=== PATIENT | female | born 1950 | race Caucasian/White ===

== ENCOUNTER → 2016-09-23 | Outpatient (CLI) | payer OTHER ==
[~2016-09-23] MED LIST: ASCO500T16 PO; ASPEC81 PO; ASPI81TA28 PO; ATEN25TA PO; BENZ100C6 PO; BISM262T3 PO; CALC500C3 PO; CLCC1250 PO; CRAN1CAP15 PO; CRAN500C2 PO; CZR25 PO; DOCU-94 PO; FLNIN; FLUT0.15 NAE; HYDR12.56 PO; HYDR25TA4 PO; LEVO100T PO; LISI-461 PO; LORA-741 PO; LORA10CA2 PO; MELO15TA10 PO; NTRGSL/4 UT; OMEG10007 PO; OYST500T47 PO; POTA10CA28 PO; ROSU5TAB PO; SYN50 PO; TRAM-10 PO; TURM1CAP2 PO; TYLOTC500 PO; [UNRECOGNIZED DRUG - OTHER] PO
--- NOTE | 2016-09-23 13:56 | MAMMOGRAPHY REPORT ---
BILATERAL DIGITAL SCREENING MAMMOGRAM WITH CAD: 09/23/2016 CLINICAL HISTORY: Routine screening. Patient has no complaints. TECHNIQUE: Current study was also evaluated with a Computer Aided Detection (CAD) system. Bilatera l CC and MLO views were obtained. COMPARISON: Comparison is made to exams dated: 09/23/2015 mammogram, 09/19/2014 mammogram, 09/13/2013 m ammogram, 09/12/2012 mammogram, 09/10/2011 mammogram, and 09/08/2010 mammogram - [facility]. BREAST COMPOSITION: The tissue of both breasts is almost entirely fatty. FINDINGS: No suspicious masses, calcifications, or areas of architectural distortion are noted in e ither breast. There has been no significant interval change compared to prior exams. Bilateral shanice gn-appearing calcifications are again noted. IMPRESSION: ACR BI-RADS CATEGORY 2: BENIGN There is no mammographic evidence of malignancy. A 1 year screening mammogram is recommended. The p atient will receive written notification of the results. Approximately 10% of breast cancers are not detected with mammography. A negative mammographic repor t should not delay biopsy if a clinically suggestive mass is present. Fabiola Levy M.D. ah/:09/23/2016 12:23:02 Residential Living Assistant: Kaley FELIZ(R)(M), [facility] letter sent: Normal 1/2 BI-RADS Code: ACR BI-RADS Category 2: Benign
== END | disposition home or self-care (01) ==
LOC: C.MAMM 09:40
PROVIDERS: ATTEND Family Medicine
DX: Z12.31 Encounter for screening mammogram for malignant neoplasm of breast (principal)

== ENCOUNTER 2017-04-04 22:20 | Emergency (ER) | payer OTHER ==
[~2017-04-04] VITALS: Ht 157.5 cm; Wt 95.0 kg
[~2017-04-04 22:20] MED LIST changes: -ASPI81TA28 PO; -CRAN500C2 PO; -FLUT0.15 NAE; -HYDR25TA4 PO; -LEVO100T PO; -LORA-741 PO; -MELO15TA10 PO; -OYST500T47 PO; -POTA10CA28 PO; -TURM1CAP2 PO
[2017-04-04] MEDS ORDERED: ALBUT/IPRATROP 3MG/0.5MG NEB 3 ML VIAL INH STA (22:27)
[2017-04-04 22:30] VITALS: TEMP 36.9; Ht 157.5 cm; Wt 95.0 kg
[2017-04-04 22:54] VITALS: O2SAT 95
[2017-04-04 22:56] LABS: BASO % 0.6 %; BASO ABS # 0.04 K/uL (0-0.2); COMPLETE YES; EOS % 3.7 %; IG% 0.2 %; LYMPH % 37.8 %; LYMPH ABS # 2.35 K/uL (1.2-3.4); MEAN CELL VOLUME 88.6 fL (80-100); MEAN CORPUSCULAR HEMOGLOBIN 30.8 pg (25-34); MEAN CORPUSCULAR HGB CONC 34.7 g/dl (32-36); MEAN PLATELET VOLUME 9.1 fL (7.4-10.4); NEUT % 48.7 %; PLATELET COUNT 183 K/uL (130-400); RED BLOOD COUNT 4.29 M/uL (4.2-5.4); WHITE BLOOD COUNT 6.22 K/uL (4.8-10.8)
[2017-04-04] MEDS ORDERED: LORA-741 PO (22:57)
[2017-04-04] MEDS ORDERED: HYDR25TA4 PO (22:57)
[2017-04-04] MEDS ORDERED: LEVO100T PO (22:57)
[2017-04-04] MEDS ORDERED: FLUT0.15 NAE (22:57)
[2017-04-04] MEDS ORDERED: CRAN500C2 PO (22:57)
[2017-04-04] MEDS ORDERED: ASPI81TA28 PO (22:57)
[2017-04-04] MEDS ORDERED: TURM1CAP2 PO (22:57)
[2017-04-04] MEDS ORDERED: OYST500T47 PO (22:57)
[2017-04-04] MEDS ORDERED: MELO15TA10 PO (22:57)
[2017-04-04 23:15] LABS: ALT/SGPT 28 U/L (12-78); AST/SGOT 28 U/L (15-37); BLOOD UREA NITROGEN 18 mg/dl (7-18); BUN/CREATININE RATIO 18.5 (10-20); CALCIUM 9.1 mg/dl (8.5-10.1); CARBON DIOXIDE 31 mmol/L (21-32); CHLORIDE 104 mmol/L (98-107); CREATININE 0.98 mg/dl (0.60-1.20); GLUCOSE 131 mg/dl (70-99); POTASSIUM 3.4 mmol/L (3.5-5.1); SODIUM 141 mmol/L (136-145)
[2017-04-04 23:25] LABS: ALKALINE PHOSPHATASE 70 U/L (45-117)
[2017-04-05] MEDS ORDERED: POTASSIUM CHLORIDE 10 MEQ TABCR PO STA (00:19)
--- NOTE | 2017-04-05 00:24 | EMERGENCY ROOM VISIT NOTE ---
ED Visit Note First contact with patient: 22:21 Patient was seen by our PA/VOCATIONAL REHABILITATION SPECIALIST. I was involved in the patient's care and did evaluate the patient myself. I was involved in the care throughout the ER stay. The patient presents with leg swelling. Laboratory testing is unrevealing. EKG is unchanged. Chest x-ray is clear. An ultrasound of the legs and some troponin testing has been ordered. If her workup is benign, she can be discharged home with reassurance. Outpatient follow-up will be suggested.
[2017-04-05 00:29] LABS: INFLUENZA A PCR Neg for Influ A (NEG); INFLUENZA B PCR Neg for Influ B (NEG)
[2017-04-05] MEDS ORDERED: ALBUTEROL HFA 8 GM INHALER INH STA (00:54)
--- NOTE | 2017-04-05 01:20 | EMERGENCY ROOM VISIT NOTE ---
History First contact with patient: 22:21 Chief Complaint: LEG PAIN,LEG INJURY Stated Complaint: RT. LEG PAIN History of Present Illness The patient is a 66 year old female who presents to the Emergency Room with complaints of cough, congestion, fatigue with right leg pain and swelling. Patient states she's had a cold for the past few days. Patient states she's had bronchitis before and symptoms of similar. Patient states today she has leg pain or swelling. 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 Patient denies chest pain, dyspnea, recent travel, tobacco use, cancer, history of blood clots, abdominal pain, vomiting, diarrhea, fevers, sore throat. Patient does have varicose veins to her legs. She has had swelling in her legs before. No history of blood clots. She's had heart disease in the past. She follows with Dr. Lynn. Review of Systems See HPI for pertinent positives & negatives. A total of 10 systems reviewed and were otherwise negative. Past Medical/Surgical History Medical Problems: (1) Chronic back pain (2) Heart aneurysm Surgical Problems: (1) H/O tubal ligation Hyperlipidemia, hypogonadism, hypertension, fatty liver Family History Cancer Diabetes mellitus Gallbladder disease Heart disease Hypertension Social History Smoking Status: Never Smoker Alcohol Use: none Marital Status: Housing Status: lives with significant other Occupation Status: unemployed Current/Historical Medications Scheduled Ascorbic Acid (Ascorbic Acid), 500 MG PO BID Aspirin (Aspirin Ec), 81 MG PO DAILY Atenolol (Tenormin), 12.5 MG PO DAILY Cranberry (Vaccinium Macrocarp (Cranberry), 1 CAN PO DAILY Docusate Sodium (Colace), 1 CAP PO QPM Fluticasone Propionate (Nasal) (Flonase Allergy Relief), 2 SPRAYS ALEXANDR DAILY Hydrochlorothiazide (Hctz), 25 MG PO DAILY Levothyroxine Sodium (Synthroid), 100 MCG PO DAILY Loratadine (Claritin), 10 MG PO DAILY Losartan Potassium (Losartan Potassium), 25 MG PO DAILY Meloxicam (Mobic), 15 MG PO DAILY Nitroglycerin (Nitrostat), 0.4 MG UT PRN Oyster Shell (Calcium), 500 MG PO DAILY Rosuvastatin Calcium (Crestor), 5 MG PO HS Turmeric (Curcuma Longa) (Turmeric), 1 CAP PO DAILY Scheduled PRN Acetaminophen (Tylenol), 1,000 MG PO for Headache or Pain Lisinopril (Lisinopril), 10 MG PO DAILY PRN for prn Lorazepam (Ativan), 0.25-0.5 MG PO TID PRN for Anxiety Tramadol (Ultram), 50 MG PO for Pain Physical Exam Vital Signs Date Time Temp Pulse Resp B/P (MAP) Pulse Ox O2 Delivery O2 Flow Rate FiO2 04/05/17 00:11 89 20 155/75 97 Room Air 04/04/17 23:10 90 04/04/17 23:00 85 20 136/64 95 Room Air 04/04/17 22:54 95 Nebulizer 8.0 04/04/17 22:45 94 Room Air 04/04/17 22:30 36.9 88 20 162/72 93 Room Air Physical Exam VITALS: Vitals are noted on the nurse's note and reviewed by myself. Vital signs stable. GENERAL: Pleasant female, in no acute distress, nondiaphoretic, well-developed well-nourished. SKIN: The skin was without rashes, erythema, edema, or bruising. There is no tenting of the skin. Capillary reflex less than 2 seconds. HEAD: Normocephalic atraumatic. EARS: External auditory canals clear, tympanic membranes pearly soliman without erythema or effusion bilaterally. EYES: Pupils equal round and reactive to light and accommodation. Conjunctivae without injection, sclerae without icterus. Extraocular movements intact. NOSE: Patent, turbinates without inflammation or discharge. No sinus tenderness. MOUTH: Mucous membranes moist. Pharynx without erythema or exudate. Uvula midline. Airway patent. Tongue does not deviate. NECK: Supple without nuchal rigidity. No lymphadenopathy. No thyromegaly. Cervical spine is nontender. No JVD. HEART: Regular rate and rhythm LUNGS: Mild diffuse end expiratory wheezes, without rales or rhonchi. No dullness to percussion. No retractions or accessory muscle use. ABDOMEN: Positive bowel sounds x 4. Normal tympanic percussion. Soft, nontender, without masses or organomegaly. Sewell sign negative. No guarding or rebound tenderness. MUSCULOSKELETAL: No muscle atrophy, erythema, noted. Minimal trace pedal edema bilaterally. Varicose veins lower legs bilaterally NEURO: Patient was alert and oriented to person place and time. Normal sensation to light and sharp touch. No focal neurological deficits. Medical Decision & Procedures Laboratory Results 04/04/17 22:45 Red Blood Count 4.29, Mean Corpuscular Volume 88.6, Mean Corpuscular Hemoglobin 30.8, Mean Corpuscular Hemoglobin Concent 34.7, Mean Platelet Volume 9.1, Neutrophils (%) (Auto) 48.7, Lymphocytes (%) (Auto) 37.8, Monocytes (%) (Auto) 9.0, Eosinophils (%) (Auto) 3.7, Basophils (%) (Auto) 0.6, Neutrophils # (Auto) 3.03, Lymphocytes # (Auto) 2.35, Monocytes # (Auto) 0.56, Eosinophils # (Auto) 0.23, Basophils # (Auto) 0.04 04/04/17 22:45 Test 04/04/17 22:45 04/04/17 23:00 White Blood Count 6.22 K/uL (4.8-10.8) Red Blood Count 4.29 M/uL (4.2-5.4) Hemoglobin 13.2 g/dL (12.0-16.0) Hematocrit 38.0 % (37-47) Mean Corpuscular Volume 88.6 fL (80-100) Mean Corpuscular Hemoglobin 30.8 pg (25-34) Mean Corpuscular Hemoglobin Concent 34.7 g/dl (32-36) Platelet Count 183 K/uL (130-400) Mean Platelet Volume 9.1 fL (7.4-10.4) Neutrophils (%) (Auto) 48.7 % Lymphocytes (%) (Auto) 37.8 % Monocytes (%) (Auto) 9.0 % Eosinophils (%) (Auto) 3.7 % Basophils (%) (Auto) 0.6 % Neutrophils # (Auto) 3.03 K/uL (1.4-6.5) Lymphocytes # (Auto) 2.35 K/uL (1.2-3.4) Monocytes # (Auto) 0.56 K/uL (0.11-0.59) Eosinophils # (Auto) 0.23 K/uL (0-0.5) Basophils # (Auto) 0.04 K/uL (0-0.2) RDW Standard Deviation 44.9 fL (36.4-46.3) RDW Coefficient of Variation 14.0 % (11.5-14.5) Immature Granulocyte % (Auto) 0.2 % Immature Granulocyte # (Auto) 0.01 K/uL (0.00-0.02) Anion Gap 6.0 mmol/L (3-11) Est Creatinine Clear Calc Drug Dose 60.7 ml/min Estimated GFR () 69.7 Estimated GFR (Non- 60.1 BUN/Creatinine Ratio 18.5 (10-20) Calcium Level 9.1 mg/dl (8.5-10.1) Magnesium Level 2.0 mg/dl (1.8-2.4) Total Bilirubin 0.3 mg/dl (0.2-1) Direct Bilirubin < 0.1 mg/dl (0-0.2) Aspartate Amino Transf (AST/SGOT) 28 U/L (15-37) Alanine Aminotransferase (ALT/SGPT) 28 U/L (12-78) Alkaline Phosphatase 70 U/L (45-117) Troponin I < 0.015 ng/ml (0-0.045) Total Protein 7.0 gm/dl (6.4-8.2) Albumin 3.8 gm/dl (3.4-5.0) Thyroid Stimulating Hormone (TSH) 2.860 uIu/ml (0.300-4.500) Influenza Type A (RT-PCR) Neg for Influ A (NEG) Influenza Type A Antigen Neg for Influ A (NEG) Influenza Type B Antigen Neg for Influ B (NEG) Influenza Type B (RT-PCR) Neg for Influ B (NEG) Medications Administered Medications (Trade) Dose Ordered Sig/Yenni Route Start Time Stop Time Status Last Admin Dose Admin Albuterol/ Ipratropium (Duoneb) 3 ml NOW STAT INH 04/04/17 22:27 04/04/17 22:30 DC 04/04/17 22:54 3 ML Potassium Chloride (Klor-Con M10) 10 meq NOW STAT PO 04/05/17 00:19 04/05/17 00:20 DC 04/05/17 00:29 10 MEQ Albuterol (Ventolin Hfa Inhaler) 2 puffs ONE STAT INH 04/05/17 00:54 04/05/17 00:55 DC 04/05/17 01:11 2 PUFFS ED Course Prior records/ancillary studies reviewed and summarized above. Nursing notes reviewed. Additional history obtained from EMS and family The patient's history was concerning for cough, fatigue and leg swelling. Differential diagnosis: Etiologies such as varicose veins, DVT, bronchitis, metabolic, infection, hypo/ hyperglycemia, electrolyte abnormalities, cardiac sources, intracerebral event, toxicologic, neurologic, as well as others were entertained. Physical examination: As above. ER treatment provided: IV Lock Nebulizer, albuterol, ONEL hose On reassessment the patient felt better. Diagnostics interpretation by me: ECG: Normal sinus, normal intervals, Q waves in the inferior leads, occasional PVC, no acute ST-T wave changes, rate of 84. EKG compared to prior EKG with no acute changes noted. Impression normal sinus rhythm with occasional PVC with Q waves inferiorly interpreted by myself The labs revealed hyperglycemia without DKA. 2 troponins that are negative for greater than 2 hours apart. Imaging studies: Chest x-ray with no acute consolidation, pneumothorax, stable cardiac mainly per chart review interpreted by myself Ultrasound negative for DVT per radiology Exam and history seem consistent with bronchitis and varicose veins. Patient had unremarkable workup as above besides mild hyperglycemia. She was advised to wear ONEL hose and use the inhaler for her bronchitis. Patient had unchanged EKG. 2 troponin that were negative that were greater than 2 hours apart. Negative ultrasound. No acute findings on chest x-ray. She is advised to follow-up family care in a few days or here in the ER sooner for chest pain, difficulty breathing, worsening signs or symptoms or as needed. By the evaluation outlined above emergent etiologies such as electrolyte abnormalities, cardiac sources, intracerebral event, toxologic, neurologic, metabolic, as well as others were deemed relatively unlikely. The pt informed about the findings as listed above. All questions were answered and pleased with the treatment. Return instructions were outlined and the patient was discharged in stable condition. Case reviewed with my attending Referral: The patient was referred back to primary care physician for follow-up in 2 to 3 days for a recheck of the current condition. Medical Decision as above Medication Reconcilliation Current Medication List: was personally reviewed by me Blood Pressure Screening Patient's blood pressure: Normal blood pressure Impression Primary Impression: Acute bronchitis Additional Impressions: Hyperglycemia Hypokalemia Right leg pain Varicose veins of both lower extremities Departure Information Dispostion Home / Self-Care Condition GOOD Referrals Ismael Aceves M.D. (PCP) Patient Instructions My [facility] Additional Instructions Albuterol Inhaler: Take 2 puffs four times daily for five days, then as needed. Wear ONEL hose when up and about. Avoid prolonged standing. Acetaminophen(Tylenol) may be used for fever or pain. Use 1000mg every six hours as needed. Avoid using more than 3000mg in a 24 hour period. (AND/OR) Ibuprofen(Motrin, Advil) may be used for fever or pain. Use 600mg every six hours as needed. Take with food. Avoid using more than 2400mg in a 24 hour period. Do not use 2400mg per day for more than three consecutive days without physician direction. Prolonged inappropriate use can lead to stomach upset or ulcers. Rest and drink plenty of fluids. Avoid smoke/smoking, fumes, dust, or any triggers in the past that may have affected your breathing. Continue current medications. Return to the ER for chest pain, difficulty breathing, fevers, vomiting, worsening of your condition, or as needed. Follow up with your primary physician this week for a recheck of your current condition and for further evaluation and workup for your high blood sugar tonight. Problem Qualifiers Primary Impression: Acute bronchitis Bronchitis organism: unspecified organism Qualified Codes: J20.9 - Acute bronchitis, unspecified
[2017-04-05 01:24] VITALS: BP 135/68; PULSE 80; O2SAT 95
--- NOTE | 2017-04-05 06:37 | DIAGNOSTIC IMAGING REPORT ---
ULTRASOUND VENOUS DOPPLER LWR EXT BILA CLINICAL HISTORY: Leg pain and swelling COMPARISON STUDY: No previous studies for comparison. FINDINGS: Real-time and color flow Doppler imaging were performed. Flow was seen within the femoral, popliteal and calf veins with no intraluminal thrombus demonstrated. The saphenous vein is patent. IMPRESSION: No evidence of lower extremity DVT. Electronically signed by: London Jerez M.D. 04/05/2017 6:36 AM Dictated Date/Time: 04/05/2017 6:35 AM
--- NOTE | 2017-04-05 06:40 | DIAGNOSTIC IMAGING REPORT ---
CHEST ONE VIEW PORTABLE CLINICAL HISTORY: Cough, fatigue COMPARISON STUDY: January 27, 2014 FINDINGS: The cardiac and mediastinal contours are normal. There is no evidence of focal pulmonary consolidation. There is no evidence of failure. No pleural effusions are visualized.[ IMPRESSION: No active disease in the chest. Electronically signed by: London Jerez M.D. 04/05/2017 6:39 AM Dictated Date/Time: 04/05/2017 6:39 AM
== END 2017-04-05 01:24 | disposition home or self-care (01) ==
LOC: EDBD 22:20 → C.EDB 22:21
DX: J20.9 Acute bronchitis, unspecified (principal); R73.9 Hyperglycemia, unspecified; E87.6 Hypokalemia; M79.604 Pain in right leg; I83.93 Asymptomatic varicose veins of bilateral lower extremities; M54.9 Dorsalgia, unspecified; G89.29 Other chronic pain; I25.3 Aneurysm of heart; I10 Essential (primary) hypertension; E78.5 Hyperlipidemia, unspecified; E28.39 Other primary ovarian failure; K76.0 Fatty (change of) liver, not elsewhere classified; Z79.82 Long term (current) use of aspirin; Z83.3 Family history of diabetes mellitus; Z82.49 Family history of ischemic heart disease and other diseases of the circulatory system

== ENCOUNTER 2017-04-25 11:46 | Emergency (ER) | payer OTHER ==
[~2017-04-25] VITALS: Ht 157.5 cm; Wt 92.7 kg
[~2017-04-25 11:46] MED LIST changes: -ASPEC81 PO; +ASPI81TA28 PO; -BENZ100C6 PO; -BISM262T3 PO; -CALC500C3 PO; -CLCC1250 PO; -CRAN1CAP15 PO; +CRAN500C2 PO; -FLNIN; +FLUT0.15 NAE; -HYDR12.56 PO; +HYDR25TA4 PO; +LEVO100T PO; +LORA-741 PO; +MELO15TA10 PO; -OMEG10007 PO; +OYST500T47 PO; -SYN50 PO; +TURM1CAP2 PO; -[UNRECOGNIZED DRUG - OTHER] PO
[2017-04-25 11:55] VITALS: TEMP 37.2; Ht 157.5 cm; Wt 92.7 kg
[2017-04-25] MEDS ORDERED: POTA10CA28 PO (12:56)
[2017-04-25 13:01] LABS: URINE APPEARANCE CLEAR (CLEAR); URINE BILIRUBIN NEG (NEG); URINE COLOR YELLOW; URINE NITRITE NEG (NEG); URINE SPECIFIC GRAVITY 1.011 (1.000-1.030); UROBILINOGEN NEG (NEG)
[2017-04-25 13:06] LABS: MANUAL MICROSCOPIC REQUIRED? NO; REVIEW REQ? NO
--- NOTE | 2017-04-25 13:25 | DIAGNOSTIC IMAGING REPORT ---
CHEST 2 VIEWS ROUTINE CLINICAL HISTORY: Right-sided chest pain COMPARISON STUDY: 04/04/2017 FINDINGS: The cardiac and mediastinal contours are normal. There is no evidence of focal pulmonary consolidation. There is no evidence of failure. No pleural effusions are visualized.[ IMPRESSION: No active disease in the chest. Electronically signed by: London Jerez M.D. 04/25/2017 1:23 PM Dictated Date/Time: 04/25/2017 1:23 PM
[2017-04-25 13:29] LABS: BASO % 0.8 %; BASO ABS # 0.04 K/uL (0-0.2); COMPLETE YES; EOS % 0.9 %; HEMATOCRIT 38.7 % (37-47); IG% 0.2 %; LYMPH % 38.4 %; LYMPH ABS # 2.03 K/uL (1.2-3.4); MEAN CELL VOLUME 88.8 fL (80-100); MEAN CORPUSCULAR HGB CONC 33.9 g/dl (32-36); MEAN PLATELET VOLUME 9.8 fL (7.4-10.4); MONO % 7.4 %; NEUT % 52.3 %; PLATELET COUNT 189 K/uL (130-400); RED BLOOD COUNT 4.36 M/uL (4.2-5.4); WHITE BLOOD COUNT 5.29 K/uL (4.8-10.8)
[2017-04-25 13:54] LABS: ALB/GLOB RATIO 1.1 (0.9-2); ALKALINE PHOSPHATASE 51 U/L (45-117); ALT/SGPT 29 U/L (12-78); AMYLASE 20 U/L (25-115); BLOOD UREA NITROGEN 16 mg/dl (7-18); BUN/CREATININE RATIO 20.1 (10-20); CALCIUM 9.4 mg/dl (8.5-10.1); CARBON DIOXIDE 31 mmol/L (21-32); CHLORIDE 104 mmol/L (98-107); CREATININE 0.81 mg/dl (0.60-1.20); GLUCOSE 88 mg/dl (70-99); SODIUM 142 mmol/L (136-145)
--- NOTE | 2017-04-25 14:41 | DIAGNOSTIC IMAGING REPORT ---
BILIARY ULTRASOUND CLINICAL HISTORY: RUQ abd pain COMPARISON STUDY: No previous studies for comparison. FINDINGS: The pancreas appears sonographically normal. The liver is of slightly increased echogenicity, nonspecific finding often seen in hepatic steatosis. No gallstones are visualized. There is no gallbladder wall thickening. There is no ductal dilatation. The common bile duct measures 5 mm. There is no right-sided hydronephrosis. IMPRESSION: 1. Ultrasonographically normal gallbladder and pancreas 2. No evidence of ductal dilatation 3. Slight increase in hepatic echogenicity, a nonspecific finding most often seen in hepatic steatosis Electronically signed by: London Jerez M.D. 04/25/2017 2:39 PM Dictated Date/Time: 04/25/2017 2:38 PM
--- NOTE | 2017-04-25 15:58 | EMERGENCY ROOM VISIT NOTE ---
ED Visit Note First contact with patient: 12:01 Patient seen and evaluated at bedside with the physician engineering assistant. Agree with his assessment and plan so far. Discussed with patient possible differential diagnosis for her right-sided rib and right quadrant pain. Discussed all her testing/results. Discussed follow-up with her family doctor, symptoms to watch and return for, she verbalized understanding was agreeable with plan.
[2017-04-25 16:15] VITALS: BP 153/82; PULSE 82; O2SAT 98
--- NOTE | 2017-04-27 18:17 | EMERGENCY ROOM VISIT NOTE ---
History First contact with patient: 12:01 Chief Complaint: ABDOMINAL PAIN Stated Complaint: STOMACH PAIN AND PRESSURE Nursing Triage Summary: triage note: pt reports right abd pain since last night. pt reports nausea. History of Present Illness The patient is a 67 year old white female who presents to the Emergency Room with complaints of right-sided upper abdominal pain that radiates through to her right flank. Symptoms started last evening around 1 AM. She states she had a peanut butter and jelly sandwich and apple pie for dinner. She did not have much of an appetite. She notes nausea but no vomiting or diarrhea. She previously had significant bronchitis approximately 2 weeks ago and had a very vigorous cough. This has resolved over the last day or 2. No fevers, chills, sweats, or abdominal pain. She denies any hematuria, urgency, or frequency. No prior history of similar discomfort. She still has her gallbladder and appendix. She denies any history of kidney stones. No shortness of breath. Pain is not any worse with a deep breath. Her accompanies her today. Review of Systems REVIEW OF SYSTEM: HEENT: No dizziness, visual problems, hearing loss, or tinnitus. There is no difficulty swallowing and no oral lesions are present. PULMONARY: No shortness of breath, sputum production or hemoptysis. CARDIOVASCULAR: No chest pain, palpitations, shortness of breath or peripheral edema. GASTROINTESTINAL: No diarrhea, constipation, vomiting, or abdominal pain. GENITOURINARY: No dysuria, frequency, urgency or nocturia. NEUROLOGIC: No weakness, muscle tenderness, epilepsy or history of neurological problems. MUSCULOSKELETAL: No history of joint tenderness/swelling. No history of arthritis or arthralgias. SKIN: No rashes or lesions. PSYCHIATRIC: No history of depression or mental illness. ENDOCRINE: No history of diabetes, thyroid disorders, or abnormal hair growth. Past Medical/Surgical History Medical Problems: (1) Chronic back pain (2) Heart aneurysm Surgical Problems: (1) H/O tubal ligation Hypertension, history of bronchitis, and GERD Family History Cancer Diabetes mellitus Gallbladder disease Heart disease Hypertension Social History Smoking Status: Never Smoker Smokeless Tobacco Use: No Alcohol Use: none Drug Use: none Marital Status: Housing Status: lives with significant other Occupation Status: unemployed Current/Historical Medications Scheduled Ascorbic Acid (Ascorbic Acid), 500 MG PO BID Aspirin (Aspirin Ec), 81 MG PO DAILY Atenolol (Tenormin), 12.5 MG PO DAILY Cranberry (Vaccinium Macrocarp (Cranberry), 1 CAN PO DAILY Docusate Sodium (Colace), 1 CAP PO QPM Fluticasone Propionate (Nasal) (Flonase Allergy Relief), 2 SPRAYS ALEXANDR DAILY Hydrochlorothiazide (Hctz), 25 MG PO DAILY Levothyroxine Sodium (Synthroid), 100 MCG PO DAILY Loratadine (Claritin), 10 MG PO DAILY Losartan Potassium (Losartan Potassium), 25 MG PO DAILY Meloxicam (Mobic), 15 MG PO DAILY Oyster Shell (Calcium), 500 MG PO DAILY Potassium Chloride (Micro-K Ext Rel), Unknown Dose PO DAILY Rosuvastatin Calcium (Crestor), 5 MG PO HS Turmeric (Curcuma Longa) (Turmeric), 1 CAP PO DAILY Scheduled PRN Acetaminophen (Tylenol), 1,000 MG PO for Headache or Pain Lisinopril (Lisinopril), 10 MG PO DAILY PRN for prn Lorazepam (Ativan), 0.25-0.5 MG PO TID PRN for Anxiety Tramadol (Ultram), 50 MG PO for Pain Allergies Coded Allergies: Levofloxacin (Unverified Adverse Reaction, Unknown, " feels goofy", ) Physical Exam Vital Signs Date Time Temp Pulse Resp B/P (MAP) Pulse Ox O2 Delivery O2 Flow Rate FiO2 04/25/17 16:15 82 18 153/82 98 04/25/17 13:54 70 92/73 96 Room Air 04/25/17 11:55 37.2 80 18 171/78 96 Room Air Physical Exam Gen.: Well-developed, well-nourished, elderly white female, in no acute distress. Laying on a bed. Alert and oriented. Skin:Warm and dry with good turgor. No rashes or lesions. No ecchymosis or erythema. The patient is not diaphoretic. No abrasions. HEENT: Normocephalic atraumatic. Eyes PERRLA, EOMI. No conjunctiva or scleral injection. Nares patent bilaterally without turbinate enlargement. No significant drainage. No epistaxis. Oropharynx without erythema or exudate. Uvula midline, oral mucosa moist. No lesions present. Heart: Heart RRR. No MGR. Peripheral pulses are 2+. Lungs: Lungs are clear to auscultation. No crackles rhonchi or wheezing. Good air movement. The patient is able to take a deep breath. Abdomen: Abdomen was inspected, auscultated, and palpated. Obese. Bowel sounds present x 4. Soft, right upper quadrant tenderness to palpation. It is worst over the inferior chondral cartilage. It is focal and reproducible. No palpable defect. No hepato-splenomegaly. No masses noted. No rebound. No pain over McBurney's point. No CVA tenderness. Musculoskeletal: Gross motor function of the upper and lower extremities is intact and unremarkable. Medical Decision & Procedures ER Provider Diagnostic Interpretation: EKG obtained today shows a normal sinus rhythm with a rate of 69. No acute ST or T-wave changes. This was reviewed with Dr. Lara. Chest x-ray obtained today was read by radiology as unremarkable for acute findings. Gallbladder ultrasound obtained today was also read by radiology as a normal gallbladder and pancreas. No evidence of ductal dilatation with a slight increase in hepatic echogenicity, a nonspecific finding most often seen in hepatic steatosis Laboratory Results 04/25/17 12:55 Red Blood Count 4.36, Mean Corpuscular Volume 88.8, Mean Corpuscular Hemoglobin 30.0, Mean Corpuscular Hemoglobin Concent 33.9, Mean Platelet Volume 9.8, Neutrophils (%) (Auto) 52.3, Lymphocytes (%) (Auto) 38.4, Monocytes (%) (Auto) 7.4, Eosinophils (%) (Auto) 0.9, Basophils (%) (Auto) 0.8, Neutrophils # (Auto) 2.77, Lymphocytes # (Auto) 2.03, Monocytes # (Auto) 0.39, Eosinophils # (Auto) 0.05, Basophils # (Auto) 0.04 04/25/17 12:55 Test 04/25/17 12:32 04/25/17 12:55 Urine Color YELLOW Urine Appearance CLEAR (CLEAR) Urine pH 7.0 (4.5-7.5) Urine Specific [place] 1.011 (1.000-1.030) Urine Protein NEG (NEG) Urine Glucose (UA) NEG (NEG) Urine Ketones NEG (NEG) Urine Occult Blood NEG (NEG) Urine Nitrite NEG (NEG) Urine Bilirubin NEG (NEG) Urine Urobilinogen NEG (NEG) Urine Leukocyte Esterase NEG (NEG) White Blood Count 5.29 K/uL (4.8-10.8) Red Blood Count 4.36 M/uL (4.2-5.4) Hemoglobin 13.1 g/dL (12.0-16.0) Hematocrit 38.7 % (37-47) Mean Corpuscular Volume 88.8 fL (80-100) Mean Corpuscular Hemoglobin 30.0 pg (25-34) Mean Corpuscular Hemoglobin Concent 33.9 g/dl (32-36) Platelet Count 189 K/uL (130-400) Mean Platelet Volume 9.8 fL (7.4-10.4) Neutrophils (%) (Auto) 52.3 % Lymphocytes (%) (Auto) 38.4 % Monocytes (%) (Auto) 7.4 % Eosinophils (%) (Auto) 0.9 % Basophils (%) (Auto) 0.8 % Neutrophils # (Auto) 2.77 K/uL (1.4-6.5) Lymphocytes # (Auto) 2.03 K/uL (1.2-3.4) Monocytes # (Auto) 0.39 K/uL (0.11-0.59) Eosinophils # (Auto) 0.05 K/uL (0-0.5) Basophils # (Auto) 0.04 K/uL (0-0.2) RDW Standard Deviation 45.9 fL (36.4-46.3) RDW Coefficient of Variation 14.2 % (11.5-14.5) Immature Granulocyte % (Auto) 0.2 % Immature Granulocyte # (Auto) 0.01 K/uL (0.00-0.02) Anion Gap 8.0 mmol/L (3-11) Est Creatinine Clear Calc Drug Dose 71.4 ml/min Estimated GFR () 87.1 Estimated GFR (Non- 75.2 BUN/Creatinine Ratio 20.1 (10-20) Calcium Level 9.4 mg/dl (8.5-10.1) Total Bilirubin 0.4 mg/dl (0.2-1) Aspartate Amino Transf (AST/SGOT) U/L (15-37) Alanine Aminotransferase (ALT/SGPT) 29 U/L (12-78) Alkaline Phosphatase 51 U/L (45-117) Troponin I < 0.015 ng/ml (0-0.045) Total Protein 7.5 gm/dl (6.4-8.2) Albumin 3.9 gm/dl (3.4-5.0) Globulin 3.6 gm/dl (2.5-4.0) Albumin/Globulin Ratio 1.1 (0.9-2) Amylase Level 20 U/L (25-115) Lipase 128 U/L (73-393) CBC, chem panel, UA, amylase, lipase, and troponin were obtained. They are all unremarkable. ED Course Patient was educated regarding today's findings. Conservative care measures were discussed. IV was established. Labs were obtained. Chest x-ray was obtained today was unremarkable. Right upper quadrant abdominal ultrasound was obtained that was negative for acute cholecystitis. EKG was obtained which showed no acute ST or T-wave changes. Lab work was unremarkable and did not suggest acute MD, infection, or dehydration. Urine was clean and did not suggest kidney stone. Pain was reproducible on exam by palpation. Likelihood for intercostal strain given her previous coughing earlier in the week was discussed with she and her . Follow-up with her PCP as needed for reexamination. Return to the ED for any other concerns or worsening of symptoms. She may apply moist compresses to the area for comfort. Gentle stretching daily. Tylenol and Motrin every 6 hours as needed for mild discomfort. Patient was seen in conjunction with Dr. Lara, who also evaluated the patient and concurred with today's diagnosis and treatment plan. Medical Decision Possibility of kidney stone, nephritis, cholecystitis, pancreatitis, pneumonia, PE, ACS, acute MD, pleurisy, contusion, intercostal strain, bowel obstruction, and diaphragmatic strain were considered among others. [place] Drug Monitoring Program Search Results: no issues identified Impression Primary Impression: Right upper quadrant abdominal pain Departure Information Referrals Ismael Aceves M.D. (PCP) Patient Instructions My [facility] [facility]
== END 2017-04-25 16:17 | disposition home or self-care (01) ==
LOC: C.EDB 11:47
DX: R10.11 Right upper quadrant pain (principal); R11.0 Nausea; M54.9 Dorsalgia, unspecified; G89.29 Other chronic pain; I10 Essential (primary) hypertension; K21.9 Gastro-esophageal reflux disease without esophagitis; Z79.82 Long term (current) use of aspirin; Z79.899 Other long term (current) drug therapy; Z87.09 Personal history of other diseases of the respiratory system; Z82.49 Family history of ischemic heart disease and other diseases of the circulatory system; Z83.3 Family history of diabetes mellitus; Z83.79 Family history of other diseases of the digestive system

== ENCOUNTER → 2017-07-16 | Outpatient (CLI) | payer OTHER ==
[~2017-07-16] MED LIST changes: -NTRGSL/4 UT; +POTA10CA28 PO
== END | disposition home or self-care (01) ==
LOC: C.LAB1850 11:18
PROVIDERS: ATTEND Physician Assistant
DX: R10.2 Pelvic and perineal pain (principal)

== ENCOUNTER → 2017-09-24 | Outpatient (CLI) | payer OTHER ==
--- NOTE | 2017-09-27 08:09 | MAMMOGRAPHY REPORT ---
BILATERAL DIGITAL SCREENING MAMMOGRAM TOMOSYNTHESIS WITH CAD: 09/24/2017 CLINICAL HISTORY: Routine screening. Patient has no complaints. TECHNIQUE: Breast tomosynthesis in addition to standard 2D mammography was performed. Current study was also evaluated with a Computer Aided Detection (CAD) system. COMPARISON: Comparison is made to exams dated: 09/23/2016 mammogram, 09/23/2015 mammogram, 09/19/2014 m ammogram, 09/13/2013 mammogram, 09/12/2012 mammogram, and 09/10/2011 mammogram - [facility] er. BREAST COMPOSITION: The tissue of both breasts is almost entirely fatty. FINDINGS: No suspicious masses, calcifications, or areas of architectural distortion are noted in ei ther breast. There has been no significant interval change compared to prior exams. There are stable postsurgical changes in the right breast at approximately 12:00 from prior surgical excision. Scatt ered bilateral benign-appearing calcifications are not significantly changed. IMPRESSION: ACR BI-RADS CATEGORY 2: BENIGN There is no mammographic evidence of malignancy. A 1 year screening mammogram is recommended. The pa tient will receive written notification of the results. Approximately 10% of breast cancers are not detected with mammography. A negative mammographic report should not delay biopsy if a clinically suggestive mass is present. Fabiola Levy M.D. /:09/24/2017 10:55:09 Processing Manager: Donita FELIZ(Meenakshi)(Ashok)([place]), [facility] letter sent: Normal 1/2 BI-RADS Code: ACR BI-RADS Category 2: Benign
== END | disposition home or self-care (01) ==
LOC: C.MAMM 10:11
PROVIDERS: ATTEND Family Medicine
DX: Z12.31 Encounter for screening mammogram for malignant neoplasm of breast (principal)

== ENCOUNTER 2018-11-30 05:09 | Inpatient (IN) ==
--- NOTE | 2018-11-17 16:05 | PAT Medication Instructions ---
Medication Instructions Date of Service November 17, 2018 Home Medications atenolol 12.5 mg PO QAM cranberry extract Cranberry Concentrate 500 mg PO QPM fluticasone propionate 2 spray INTRANASAL QAM hydrochlorothiazide 25 mg PO QAM levothyroxine 100 mcg PO QAM lorazepam 0.5 mg PO TID PRN losartan 25 mg PO QAM multivitamin 1 cap PO QAM potassium chloride 10 meq PO QAM tramadol 50 mg PO Q8H PRN acetaminophen 1,000 mg PO Q6H PRN calcium carbonate-vitamin D3 Calcium 600 + D(3) 1 tab PO QPM cholecalciferol (vitamin D3) [Vitamin D3] 2,000 unit PO QAM clopidogrel [Plavix] 75 mg PO QAM docusate sodium [Colace] 100 mg PO QPM jes root-pyridoxine HCl(B6) 1 cap PO QAM lactobacillus comb no.10 [Probiotic] 20,000 mmu cells PO QAM loratadine 10 mg PO QAM methylsulfonylmethane MSM 1,000 mg PO QAM vitamin B complex 1 tab PO QAM ASK your prescriber and surgeon clopidogrel [Plavix] 75 mg PO QAM (in order for spinal anesthesia, need to stop this medication 7 days prior to surgery- please check if this is okay with prescribing physician*) STOP taking 2 weeks before surgery (or as soon as possible if surgery is within 2 weeks) cranberry extract Cranberry Concentrate 500 mg PO QPM jes root-pyridoxine HCl(B6) 1 cap PO QAM methylsulfonylmethane MSM 1,000 mg PO QAM DO NOT take the morning of surgery hydrochlorothiazide 25 mg PO QAM losartan 25 mg PO QAM multivitamin 1 cap PO QAM potassium chloride 10 meq PO QAM cholecalciferol (vitamin D3) [Vitamin D3] 2,000 unit PO QAM lactobacillus comb no.10 [Probiotic] 20,000 mmu cells PO QAM loratadine 10 mg PO QAM vitamin B complex 1 tab PO QAM Take morning of surgery With a small sip of water, OTHERWISE NOTHING TO EAT OR DRINK AFTER MIDNIGHT: atenolol 12.5 mg PO QAM lorazepam 0.5 mg PO TID PRN (if needed) tramadol 50 mg PO Q8H PRN (okay to take up to 4 hours prior to surgery if needed) acetaminophen 1,000 mg PO Q6H PRN (okay to take up to 4 hours prior to surgery if needed) Take evening before surgery lorazepam 0.5 mg PO TID PRN (if needed) tramadol 50 mg PO Q8H PRN (if needed) acetaminophen 1,000 mg PO Q6H PRN (if needed) calcium carbonate-vitamin D3 Calcium 600 + D(3) 1 tab PO QPM docusate sodium [Colace] 100 mg PO QPM Other Notes If you have any questions please call us at [phone] or [phone] or [phone] or [phone]
--- NOTE | 2018-11-18 14:39 | Anesthesiology Consultation ---
Date of Service November 18, 2018 Assessment & Plan (1) Encounter for pre-operative examination: - RE: Plavix: Patient advised that in order for spinal anesthesia, plavix needs to be held 7 days prior to surgery. She voiced understanding and will check if okay with prescriber (neurology). She is aware, if not able to be held from neurologic perspective, general anesthesia is the alternative type of anesthesia. - S/P TIA (03/22/18): CVA could not be entirely excluded due to confounding hist orical variables (pt had a headache and nasal congestion several days prior to admission). Plavix initiated. S/P unremarkable ECHO/carotids. Discussed with patient that in the event episode was a CVA (although deemed TIA per neuro), patient at increased risk for elective knee surgery given surgery within 9 months of episode. Patient voiced understanding and wishes to proceed. - PCP: 11/18/18: "I am anticipating that they will do preoperative testing to include chest x-ray EKG and lab work. Assuming that this is all unremarkable, I would say she would need nothing further in terms of evaluation prior to her surgery and could proceed with the surgery. She does have some increase medical risk given obesity." - Cardio: 11/23/18: discrete focal inferoapical aneurysm on 1996 cardiac cath with normal coronary arteries. "Stable cardiac signs and symptoms.. considered low to moderate risk for periopeative cardiac complications. Further cardiac testing is not warranted at this time as ultimately this would not change or reduce her overall surgical risk. She is optimized from a cardiac perspective." Chart Review Chart Review: Acceptable Risk for Surgery and Patient seen in Pre Admission Testing Teaching & Discussion Pre-Anesthesia Teaching/Discussion Notes: Instructed NPO after midnight before surgery,except medications with 15 cc of water. Medication instructions provided according to the PAT guidelines. History Surgery Operation Date: 11/30/18 11:40 Proposed Procedures p Right Total Knee Arthroplasty - Alireza Luna MD Height/Weight Height: 5 ft 1 in Weight: 93.1 kg Allergies Allergy/AdvReac Type Severity Reaction Status Date / Time atorvastatin AdvReac Unknown LEG CRAMPS Verified 11/11/18 08:18 levofloxacin AdvReac Unknown "GOOFY Verified 11/18/18 14:41 FEELING", DRY MOUTH Medications Home Medications Medication Instructions Recorded Confirmed Last Taken atenolol 12.5 mg PO QAM 10/16/18 06/07/19 Unknown cranberry extract [Cranberry 500 mg PO QPM 03/22/18 11/11/18 Unknown Concentrate] fluticasone propionate 2 spray INTRANASAL QAM 03/22/18 11/11/18 Unknown hydrochlorothiazide 25 mg PO QAM 03/22/18 11/11/18 Unknown levothyroxine 100 mcg PO QAM 03/22/18 11/11/18 Unknown lorazepam 0.5 mg PO TID PRN 03/22/18 11/11/18 Unknown losartan 25 mg PO QAM 03/22/18 11/11/18 Unknown multivitamin 1 cap PO QAM 03/22/18 11/11/18 Unknown potassium chloride 10 meq PO QAM 03/22/18 11/11/18 Unknown tramadol 50 mg PO Q8H PRN 03/22/18 11/11/18 Unknown acetaminophen 1,000 mg PO Q6H PRN 11/11/18 11/11/18 Unknown calcium carbonate-vitamin D3 1 tab PO QPM 11/11/18 11/11/18 Unknown [Calcium 600 + D(3)] cholecalciferol (vitamin D3) 2,000 unit PO QAM 11/11/18 11/11/18 Unknown [Vitamin D3] clopidogrel [Plavix] 75 mg PO QAM 11/11/18 11/11/18 Unknown docusate sodium [Colace] 100 mg PO QPM 11/11/18 11/11/18 Unknown jes root-pyridoxine HCl(B6) 1 cap PO QAM 11/11/18 11/11/18 Unknown lactobacillus comb no.10 20,000 mmu cells PO QAM 11/11/18 11/11/18 Unknown [Probiotic] loratadine 10 mg PO QAM 11/11/18 11/11/18 Unknown methylsulfonylmethane [MSM] 1,000 mg PO QAM 11/11/18 11/11/18 Unknown vitamin B complex 1 tab PO QAM 11/11/18 11/11/18 Unknown Past Medical History Medical History HTN (hypertension) HLD (hyperlipidemia) Hypothyroidism RAMIREZ (obstructive sleep apnea) CPAP Obesity Aneurysm DISCRETE FOCAL INFEROAPICAL ANEURYSM- MONITORED BY CARDIO Diverticular disease Hx of squamous cell carcinoma of skin S/P EXCISION (NASAL) Osteoarthritis Transient ischemic attack (TIA) SUSPECTED TIA BUT CVA COULD NOT BE EXCLUDED (03/22/2018) Exercise / Class Metabolic Activity III < 4 Walking/Shop/Light housework Past Family History Family History Father , 54 Lung cancer Mother , 83 T2DM (type 2 diabetes mellitus) Stroke Son Hypertension Daughter Hypertension Mother Family history of diabetes mellitus Past Surgical History Surgical History History of colonoscopy History of esophagogastroduodenoscopy (EGD) History of right breast biopsy History of cardiac cath 1996= NO STENTS History of surgical removal of skin lesion NASAL Hx of tubal ligation Status post laser ablation of incompetent vein B/L LE Past Anesthesia History No Hx of Anesthesia Complications and No Family Hx of Anesthesia Complications History of PONV No Hx of PONV and Hx of Motion Sickness Social History Smoking Status: Never smoker Do You Dip or Chew Tobacco: No Hx Alcohol Use: No Hx Substance Use: No Review of Systems Patient denies chest pain, shortness of breath, reflux, cough, wheezing, palpitations. Physical Exam Vital Signs VITALS BP 123/73 P 70 TEMP 98.0 SP02 95%RA RESP 16 PHYSICAL Decreased cervical extension (2/2 arthritis per patient). Full TMJ range of motion. TMD 3 finger breaths Mallampati Score 3 Dentition: chipped lower side tooth on right; full dentures on upper Lungs: clear throughout to auscultation Cardiac: regular rate and rhythm, no murmurs noted Spine: normal Carotid arteries: negative bruit Extremities: non-pitting LE edema Testing Laboratory Results 11/18/18 14:58 11/18/18 14:58 11/18/18 11/18/18 11/18/18 14:58 14:58 14:58 PT 10.3 INR 1.0 APTT 28.0 Hemoglobin A1c 6.1 H Urine Color Urine Appearance Urine pH Ur Specific [place] Urine Protein Urine Glucose (UA) Urine Ketones Urine Nitrite Ur Leukocyte Esterase Blood Type O Negative Antibody Screen NEGATIVE 11/18/18 14:58 PT INR APTT Hemoglobin A1c Urine Color Yellow Urine Appearance Clear Urine pH 7.5 Ur Specific [place] 1.015 Urine Protein Negative Urine Glucose (UA) Negative Urine Ketones Negative Urine Nitrite Negative Ur Leukocyte Esterase Negative Blood Type Antibody Screen Electrocardiogram Date: 11/18/18 NSR at 74bpm. Possible anterolateral infarct, age undetermined. Chest X-Ray Date: 03/22/18 Findings: + NAD Echocardiogram Date: 03/23/18 EF 50-55%. Small wall motion abnormality involving apical septum, apical inferior wall and apex with akinesis to dyskinesis of the segments. Mild cLVH. Grade I DD. No significant valvular disease. Stress Test Date: 12/20/14 Type: exercise Stress EKG negative for ischemia. Discrete apical aneurysm involving the inferior apex. LVEF 55-59%. 5 METS. 101% MPHR. No significant valvular disease. Other Testing Carotid ultrasound: 03/22/18: No hemodynamically significant stenosis in the car otid arteries. Mild plaque formation bilaterally. Antegrade flow in b/l vertebral arteries.
[2018-11-18 16:17] LABS: Basophils # (auto) 0.04 K/uL (0-0.2); Basophils % (auto) 0.6 %; Eosinophils # (auto) 0.05 K/uL (0-0.5); Eosinophils % (auto) 0.7 %; Hematocrit (blood only) 44.4 % (37-47); Hemoglobin 14.7 g/dL (12.0-16.0); Immature Granulocytes # (auto) 0.01 K/uL (0.00-0.02); Immature Granulocytes % (auto) 0.1 %; Lymphocytes # (auto) 2.53 K/uL (1.2-3.4); Lymphocytes % (auto) 36.7 %; Mean Corpuscular Hgb Conc 33.1 g/dL (32-36); Mean Corpuscular Volume 88.4 fL (80-100); Mean Platelet Volume 9.5 fL (7.4-10.4); Monocytes % (auto) 8.7 %; Neutrophils # (auto) 3.66 K/uL (1.4-6.5); Neutrophils % (auto) 53.2 %; Platelet Count 224 K/uL (130-400); RDW Standard Deviation 45.4 fL (36.4-46.3); Red Blood Count 5.02 M/uL (4.2-5.4); White Blood Count 6.89 K/uL (4.8-10.8)
[2018-11-18 16:26] LABS: Appearance Urine Clear (Clear); Bilirubin Urine Negative (Negative); Blood Urine Negative (Negative); Color Urine Yellow; Glucose Urine UA Negative (Negative); Ketones Urine Negative (Negative); Leukocyte Esterase Urine Negative (Negative); Nitrite Urine Negative (Negative); Protein Urine Negative (Negative); Specific Gravity Urine 1.015 (1.000-1.030); Urobilinogen Urine Negative (Negative); pH Urine 7.5 (4.5-7.5)
[2018-11-18 16:33] LABS: Prothrombin Time 10.3 Seconds (9.0-12.0)
[2018-11-18 16:34] LABS: Albumin Level 3.9 gm/dl (3.4-5.0); BUN Creatinine Ratio 19.8 (10-20); Calcium 9.2 mg/dl (8.5-10.1); Est GFR (African American) 103.2
[2018-11-19 07:00] LABS: Estimated Average Glucose 128 mg/dl; Hemoglobin A1C 6.1 % (4.5-5.6)
--- NOTE | 2018-11-29 16:12 | History and Physical Report ---
DATE OF ADMISSION: 11/30/2018 CHIEF COMPLAINT: Chronic right knee pain. HISTORY OF PRESENT ILLNESS: This is a 68-year-old female patient of Dr. Luna'scottie complaining of chronic right knee pain, longstanding, now progressively getting worse. The patient has failed conservative treatment including intra-articular injections, tramadol, Tylenol, physician-directed home exercise program and the use of a cane. She has been diagnosed with end-stage osteoarthritis per clinical and radiographic exams. She has increased pain with weightbearing activities and her pain does interfere with her activities of daily living. The patient wished to proceed with an elective right total knee arthroplasty. PAST MEDICAL HISTORY: History of coronary artery disease status post a silent [place] in the past, hypertension, hypercholesterolemia, irregular heartbeat. 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 SOCIAL HISTORY: Nonsmoker, nondrinker. PAST SURGICAL HISTORY: Tubal ligation and breast biopsies. FAMILY HISTORY: Noncontributory. REVIEW OF SYSTEMS: The patient complains of chronic right knee pain, otherwise denies any shortness of breath, chest pain, nausea, vomiting or any other joint complaints. MEDICATIONS: 1. Plavix 75 mg daily. 2. Hydrochlorothiazide 25 mg daily. 3. Levothyroxine 100 mcg daily. 4. Levoxyl 100 mg daily. 5. Tramadol 50 mg as needed. 6. Lipitor 10 mg 3 times per week. 7. Losartan 25 mg daily. 8. Ativan 0.5 mg 3 times daily as needed. 9. Potassium chloride 10 mEq daily. 10. Atenolol 25 mg 1/2 tablet daily. 11. Flonase 50 mcg actuation 2 sprays each nostril daily. 12. Albuterol 108 mcg actuation 2 puffs every 4 hours as needed. 13. Loratadine 10 mg daily. 14. Calcium 500 mg daily. 15. Probiotic daily. 16. B complex vitamin daily. 17. Tylenol as needed. 18. Colace 100 mg daily as needed. 19. Vitamin C 500 mg daily. 20. Cranberry 500 mg daily. ALLERGIES: LEVAQUIN, CELEBREX. PHYSICAL EXAMINATION: GENERAL: Well-developed, well-nourished 68-year-old female in no acute distress. She is alert and oriented x3 and pleasant. HEENT: Normocephalic, atraumatic. Extraocular motions are intact. Pupils are equal, reactive to light. HEART: Regular rate and rhythm, no murmurs. LUNGS: Clear. ABDOMEN: Soft, nontender, bowel sounds present. EXTREMITIES: Right knee is 0-95 degrees of limited range of motion with crepitation. She has a mild effusion with medial joint line tenderness. She has a neutral alignment. She has 4/5 strength with pain. NEUROLOGIC: Neurovascularly, she is intact in her right lower extremity. DIAGNOSES: Right knee end-stage osteoarthritis, coronary artery disease status post silent [place] in the past, hypertension, hypercholesterolemia, irregular heartbeat, history of heart wall aneurysm, anxiety, history of TIA, hypothyroidism, osteoarthritis, spine problems, sciatica, obesity, history of skin cancer. PLAN: The patient was advised of her diagnosis. Indications, risks, benefits, postop course have all been reviewed. The patient wished to proceed with a right total knee arthroplasty. Necessary consent forms, preoperative testing and clearances will be obtained.
[2018-11-30] MEDS ORDERED: CEFAZOLIN 2000MG 2,000 MG/15 ML SYR IV SCH (06:00)
[2018-11-30] MEDS ORDERED: BUPIVACAINE LIPOSOME/PF 266 MG, BUPIVACAINE/EPINEPHRINE 50 ML, SODIUM CHLORIDE 0.9% 30 ... INFIL SCH (06:00)
[2018-11-30] MEDS ORDERED: ROPIVACAINE 0.5% HCL/PF 150 MG, BUPIVACAINE 0.5% MPF 30 ML, EPINEPHrine 30MG/30ML (OR U... INFIL SCH (06:00)
[2018-11-30] MEDS ORDERED: LR 500ML BOLUS, THEN 15ML/HR IV SCH (06:00)
[2018-11-30] MEDS ORDERED: METOCLOPRAMIDE HCL 10 MG TABLET PO SCH (06:00)
[2018-11-30] MEDS ORDERED: FAMOTIDINE 20 MG TAB PO SCH (06:00)
[2018-11-30] MEDS ORDERED: GABAPENTIN 300 MG PO SCH (06:00)
[2018-11-30] MEDS ORDERED: ACETAMINOPHEN 500 MG TAB PO SCH (06:00)
[2018-11-30] MEDS ORDERED: dexAMETHasone 4 MG TAB PO SCH (06:00)
[2018-11-30] MEDS ORDERED: LIDOCAINE HCL 2% 2 ML VIAL/AMP(20MG/ML) INFIL ONE (06:24)
[2018-11-30] MEDS ORDERED: PROPOFOL IV EMULSION 10 MG/ML 20 ML VIAL IV ONE (06:24)
[2018-11-30] MEDS ORDERED: MIDAZOLAM HCL 1 MG/ML 2ML VIAL ONE (06:24)
[2018-11-30] MEDS ORDERED: BUPIVACAINE 0.5 % 5 MG/1 ML PF 10ML VIAL ONE (06:31)
[2018-11-30] MEDS ORDERED: ROPIVACAINE 0.5% 5 MG/ML 30 ML VIAL ONE (06:31)
[2018-11-30] MEDS ORDERED: ePHEDrine sulfate 50 MG/ML AMP IV PRN (06:37)
[2018-11-30] MEDS ORDERED: ATROPINE SULFATE 0.1 MG/ML 10ML SYR IV PRN (06:37)
[2018-11-30] MEDS ORDERED: fentaNYL citrate 100 MCG/2 ML VIAL IV PRN (06:37)
[2018-11-30] MEDS ORDERED: BACITRACIN INJ 50,000 UNIT VIAL ONE (06:39)
[2018-11-30] MEDS ORDERED: ORTHO JOINT ANESTHETIC ONE (06:39)
--- NOTE | 2018-11-30 06:52 | History & Physical Bridge Note ---
Date of Service November 30, 2018 History & Physical Bridge Note I have examined the patient, reviewed the History & Physical and in the interval since the performance of the History & Physical I have noted the following changes of clinical significance: no changes noted
--- NOTE | 2018-11-30 08:34 | Post Operative Brief Note ---
Immediate Post Op Note v1 Date of Surgery November 30, 2018 Pre & Post Diagnosis Operation Date: 11/30/18 07:00 Pre-Op Diagnosis: Unilateral Primary Osteoarthritis, Right Knee, obesity BMI 37.5 Post-Op Diagnosis: Unilateral Primary Osteoarthritis, Right Knee, obesity BMI 37.5 Procedure Operation Date: 11/30/18 07:00 Actual Procedures p Right Total Knee Arthroplasty(Right), increased level difficulty BMI 37.5- Alireza Luna MD Surgeon Alireza Luna MD Review Nurse Ismael ORTIZ Estimated Blood Loss 5 Findings Consistent with Post-Op Diagnosis Specimens Bone cuts Drains Hemovac Drain Anesthesia Type MAC Spinal Regional Complications none Disposition Accompanied Patient To Recovery: No Disposition: Recovery Room Overlapping Procedure I was present for: the critical portions of procedure.
--- NOTE | 2018-11-30 09:29 | Anesthesiology Progress Note ---
Date of Service November 30, 2018 Anesthesia Post Procedure Vital Signs Vital Signs: Temp Pulse Pulse Pulse Resp BP BP 11/30/18 09:20 75 18 103/58 L 11/30/18 09:15 78 20 91/63 L 11/30/18 09:10 75 22 109/55 L 11/30/18 09:06 83 19 102/64 11/30/18 09:05 36.8 C 77 78 20 102/64 11/30/18 05:42 36.8 C 71 20 158/83 H Pulse Ox 11/30/18 09:20 94 11/30/18 09:15 97 11/30/18 09:10 95 11/30/18 09:06 97 11/30/18 09:05 96 11/30/18 05:42 97 Pain Intensity Left Knee: Pain Intensity: 2 Right Shoulder: Pain Intensity: 3 Transfer of Care Handoff Completed per policy Notes Mental Status: alert / awake / arousable Patient Amnestic to Procedure: Yes Nausea / Vomiting: adequately controlled Pain: adequately controlled Airway Patency, RR, SpO2: stable & adequate BP & HR: stable & adequate Hydration State: stable & adequate Neuraxial Anesthesia: was administered and sensory block is resolving Anesthetic Complications: no major complications apparent and Pt Satisfied with anesthetic care
--- NOTE | 2018-11-30 09:40 | XRay Report ---
XR knee RT 2V routine CLINICAL HISTORY: Postoperative examination. Degenerative arthritis. COMPARISON: 11/24/2017 DISCUSSION: There are postsurgical changes of a total right knee arthroplasty and patellar resurfacin g. The femoral tibial components appear well seated. Overlying skin connie and surgical drains are e vident. There is air within the soft tissues consistent with recent surgery. IMPRESSION: Postsurgical changes of a total right knee arthroplasty. Electronically signed by: London Jerez M.D. 11/30/2018 9:38 AM
[2018-11-30] MEDS ORDERED: NALOXONE HCL 0.4 MG/1 ML VIAL/CARP IV PRN (09:55)
[2018-11-30] MEDS ORDERED: BISACODYL 10 MG SUPP PR PRN (09:55)
[2018-11-30] MEDS ORDERED: ONDANSETRON INJ 2 MG/ML 2 ML VIAL IV PRN (09:55)
[2018-11-30] MEDS ORDERED: OXYCODONE HCL IR 5 MG TAB (IMMEDIATE RELEASE) PO PRN (09:55)
[2018-11-30] MEDS ORDERED: MAGNESIUM HYDROXIDE SUSP 30 ML UDC PO PRN (09:55)
[2018-11-30] MEDS ORDERED: LORazepam 0.5 MG TAB PO PRN (09:55)
--- NOTE | 2018-11-30 10:47 | Hospitalist Consultation ---
Date of Consultation November 30, 2018 Assessment & Plan (1) Osteoarthritis of right knee: - POD# [address] Luna - activity and wound care orders as per ortho - pain control with bowel regimen - PT/OT - monitor H/H for acute blood loss anemia and transfuse blood products PRN (2) History of TIA (transient ischemic attack): -Continue Plavix (ok by Ortho) (3) Aneurysm: -History of discrete apical aneurysm -No acute issues (4) HTN (hypertension): -BP stable, continue hydrochlorothiazide, losartan, atenolol (5) HLD (hyperlipidemia): -Not on statin therapy secondary to myalgias (6) Hypothyroidism: -Continue levothyroxine (7) RAMIREZ (obstructive sleep apnea): -CPAP as per home settings (8) DVT prophylaxis: -Teds/SCDs as per orthopedics Thank you for this consultation. We will follow the patient with you during their hospital stay. You can reach a member of the [facility] Team 28/12 via pager @ [phone]. Supervising Physician Co-Signing Physician Notes Patient is a 68-year-old female with history of hypertension, TIA, hypothyroidism, RAMIREZ and other problems who was seen and evaluated postop after having right total knee arthroplasty by Dr. Salazar. Patient is doing well postop. Denies any chest pain, shortness of breath, dizziness, nausea, abdominal pain. Right knee pain at surgical site is controlled. Offers no complaints at this time. On exam patient is obese, no apparent distress, normocephalic atraumatic, lungs are clear to auscultation, S1-S2, no murmur, abdomen soft nontender, grossly no focal neurological deficits, no pedal edema, right knee surgical site in dressing, +drain. Assessment and plan: S/P R TKA. Monitor for postop anemia. Continue pain control, bowel regimen. Activity, DVT Px as per Primary team. Prediabetes: Last A1c is 6.1. Counseled about lifestyle changes. I personally reviewed the record. Patient is interviewed and examined at bedside. Patient's care is coordinated with Sulma Escudero MARKETING RECRUITER. Please refer to the documentation above for details of patient's presentation and for discussion of other issues. History of Present Illness Reason for Consultation: Postop medical management Requesting Physician: Dr. Luna Attending Physician: Dr. Blackburn History of Present Illness 68-year-old female who is status post right total knee arthroplasty today by Dr. Luna. Postoperatively, the patient is doing well. She reports some continued numbness to the lower extremities. Pain is well controlled. She denies chest pain and shortness of breath. No abdominal pain or nausea. She denies lightheadedness and dizziness. Patient reports she did void in PACU. Allergies Allergy/AdvReac Type Severity Reaction Status Date / Time levofloxacin AdvReac Intermediate "GOOFY Verified 11/30/18 05:34 FEELING", DRY MOUTH atorvastatin AdvReac Mild LEG CRAMPS Verified 11/30/18 05:34 Home Medications Home Medications Medication Instructions Recorded Confirmed Type atenolol 12.5 mg PO QAM 03/22/18 11/30/18 History cranberry extract [Cranberry 500 mg PO QPM 03/22/18 11/30/18 History Concentrate] fluticasone propionate 2 spray INTRANASAL QAM 03/22/18 11/30/18 History hydrochlorothiazide 25 mg PO QAM 03/22/18 11/30/18 History levothyroxine 100 mcg PO QAM 03/22/18 11/30/18 History lorazepam 0.5 mg PO TID PRN 03/22/18 11/30/18 History losartan 25 mg PO QAM 03/22/18 11/30/18 History multivitamin 1 cap PO QAM 03/22/18 11/30/18 History potassium chloride 10 meq PO QAM 03/22/18 11/30/18 History tramadol 50 mg PO Q8H PRN 03/22/18 11/30/18 History acetaminophen 1,000 mg PO Q6H PRN 11/11/18 11/30/18 History calcium carbonate-vitamin D3 1 tab PO QPM 11/11/18 11/30/18 History [Calcium 600 + D(3)] cholecalciferol (vitamin D3) 2,000 unit PO QAM 11/11/18 11/30/18 History [Vitamin D3] clopidogrel [Plavix] 75 mg PO QAM 11/11/18 11/30/18 History docusate sodium [Colace] 100 mg PO QPM 11/11/18 11/30/18 History jes root-pyridoxine HCl(B6) 1 cap PO QAM 11/11/18 11/30/18 History lactobacillus comb no.10 20,000 mmu cells PO QAM 11/11/18 11/30/18 History [Probiotic] loratadine 10 mg PO QAM 11/11/18 11/30/18 History methylsulfonylmethane [MSM] 1,000 mg PO QAM 11/11/18 11/30/18 History vitamin B complex 1 tab PO QAM 11/11/18 11/30/18 History Patient History Medical History History of TIA (transient ischemic attack) (Chronic) Aneurysm (Chronic) Discrete apical aneurysm Chronic back pain (Chronic) History of left heart catheterization (Chronic) HTN (hypertension) (Chronic) HLD (hyperlipidemia) (Chronic) Hypothyroidism (Chronic) RAMIREZ (obstructive sleep apnea) (Chronic) CPAP Obesity (Chronic) Osteoarthritis (Chronic) Surgical History H/O tubal ligation (Resolved) Status post laser ablation of incompetent vein (Chronic) Family History Father , 54 Lung cancer Mother , 83 T2DM (type 2 diabetes mellitus) Stroke Son Hypertension Daughter Hypertension Mother Family history of diabetes mellitus Social History Preferred Language: Hungarian Communication Ability: Effective Beliefs That Will Affect Care: None marital status: Current Living Situation: Spouse current occupational status: retired current occupation: Former [employer] employee Feels Safe at Home: Yes Safety Concerns: Feels Safe At This Time Smoking Status: Never smoker Do You Dip or Chew Tobacco: No Second Hand Exposure: No Hx Alcohol Use: No Hx Substance Use: No Review of Systems Review of Systems: ROS per HPI, all other systems reviewed and negative Physical Exam Constitutional: WD/WN, vitals as above Eyes: PERRL, conjunctivae normal, anicteric sclerae ENMT: external ear and nose normal, oropharynx normal Respiratory: normal respiratory effort, lungs clear to auscultation Cardiovascular: Rate/Rhythm: regular rate and regular rhythm Vessels: normal peripheral pulses Extremities: no edema Gastrointestinal (Abdomen): normal bowel sounds, soft, nontender, no hepatosplenomegaly Musculoskeletal: Extremities: no cyanosis and no clubbing S/P right knee surgery, surgical dressing dry and intact, drain in place draining bloody drainage; decreased sensation and movement BLLE, circulation intact Skin: no rashes, warm and dry Neurologic: PERRL, EOMI, accommodation nl, no face palsy, no dysarthria Psychiatric: A+Ox3, euthymic affect Results & Data Vital Signs (Past 12 Hours) Vital Signs Temp Pulse Pulse Pulse Resp BP BP 11/30/18 10:16 63 17 112/68 11/30/18 09:40 110/62 11/30/18 09:36 66 18 11/30/18 09:34 66 19 113/64 11/30/18 09:30 36.8 C 76 18 91/58 L 11/30/18 09:25 75 19 105/62 11/30/18 09:20 75 18 103/58 L 11/30/18 09:15 78 20 91/63 L 11/30/18 09:10 75 22 109/55 L 11/30/18 09:06 83 19 102/64 11/30/18 09:05 36.8 C 77 78 20 102/64 11/30/18 05:42 36.8 C 71 20 158/83 H Pulse Ox 11/30/18 10:16 98 11/30/18 09:40 11/30/18 09:36 98 11/30/18 09:34 98 11/30/18 09:30 98 11/30/18 09:25 98 11/30/18 09:20 94 11/30/18 09:15 97 11/30/18 09:10 95 11/30/18 09:06 97 11/30/18 09:05 96 11/30/18 05:42 97
[2018-11-30] MEDS: SODIUM CHLORIDE 0.9% 1000ML 1,000 ML IV SCH ×2 (11:08→20:51)
[2018-11-30] MEDS: ACETAMINOPHEN 500 MG TAB PO SCH ×2 (13:11→21:00)
[2018-11-30] MEDS: CEFAZOLIN 2000MG 2,000 MG/15 ML SYR IV SCH ×2 (13:12→21:01)
[2018-11-30] MEDS: HYDROmorphone INJ 0.5 MG/0.5 ML SYR IV PRN (17:06)
--- NOTE | 2018-11-30 20:16 | Operative Report ---
Post Operative Report Pre & Post Diagnosis Operation Date: 11/30/18 07:00 Pre-Op Diagnosis: Unilateral Primary Osteoarthritis, Right Knee, obesity BMI 37.5 Post-Op Diagnosis: Unilateral Primary Osteoarthritis, Right Knee, obesity BMI 37.5 Procedure Operation Date: 11/30/18 07:00 Actual Procedures p Right Total Knee Arthroplasty(Right), increased difficulty BMI 37.5, applic ation superficial wound VAC- Alireza Luna MD Surgeon Alireza Luna MD Oil Pit Attendant Ismael ORTIZ Estimated Blood Loss 5 Findings Consistent with Post-Op Diagnosis Specimens Bone cuts Drains 2 Hemovac Anesthesia Type MAC Spinal Regional Complications none Disposition Accompanied Patient To Recovery: No Disposition: Recovery Room Indications 60-year-old female with progressive osteoarthritis in her right knee failed conservative management. Radiographs and she is [id number] medial compartment the varus knee and she is moderate patellofemoral OA. Description of Procedure Patient taken to the operating room the size under spinal MAC regional anesthesia. Patient was placed supine on the operating table. A pneumatic tourniquet was placed about the right obese upper thigh. The right lower extremity was prepped and draped in sterile fashion. Knee exam demonstrated good range of motion obese knee no instability knee effusion. The leg was elevated exsanguinated with an Esmarch bandage and pneumatic tourniquet was raised to 350 millimeters of mercury. Skin incised sharply in longitudinal fashion. Subcutaneous flaps elevated. Incision was made through the medial retinaculum extending up in the mid third of the quadriceps tendon and down to the medial tibial tubercle. Intra-articular findings demonstrated tricompartmental DJD [id number] medial compartment and grade 3 patellofemoral DJD. The CEYX triathlon total knee arthroplasty system was used. To expose the knee the infrapatellar fat pad was resected. The meniscal remnants and cruciate ligaments were resected. The anterior fat pad over the femur in the area of the anterior flange of the femoral component was resected. Lateral synovial bands release. The femur was exposed. An intramedullary drill hole was made into the canal. A guide praveen was placed. Distal femoral cutting guide was adjusted to resect a 5 degree valgus cut with 8 millimeters distal femur resected. The knee was extended and a subperiosteal peel lateral release was performed around the patella. Patella width was measured and width was reproduced using a freehand cut technique and a 31 x 9 symmetrical patella component. The 3 drill holes were made and the excess lateral facet was beveled off to prevent any impingement. Attention was taken back to the femur which was exposed with retractors and the femoral sizing guide was pinned in position. The drill holes were placed in 3 of external rotation to match epicondylar axis. Femur sized for a 3 right component. The 4-in-1 cutting block was placed and then the anterior posterior and chamfer cuts are made. The tibia was then subluxed. The external tibial cutting guide was just to make a perpendicular cut to the long axis of the tibia below the most deficient bone loss side. A lamina bradley linebacker crewmember was used and the flexion extension gaps were balanced. All posterior osteophytes removed. All meniscal remnants were resected. The tibia exposed and the trial tibial component size 2 was externally rotated in line with the tibial tubercle and pinned in position. The punch for stem was used. The notch cutting device was centered appropriately and the femoral notch cut was made. The femoral trial was inserted. Trial tibial inserts were placed and size 11 gave balanced ligaments through flexion and extension. Patella tracking was assessed. The patella tracked centrally. The trial components were then removed and the orthomix anesthetic cocktail was injected per protocol. The knee was then copiously irrigated with pulsatile lavage antibiotic solution. Final components were then cemented with Simplex cement. Final components were as 31 x 9 mm symmetrical patella, size 3 posterior stabilized right femoral component triathlon Alycia total knee, triathlon primary tibial baseplate size 2, X3 [id number] tibial bearing insert. While the cement cured the Betadine soak was used per protocol. After cement cured further pulsatile lavage irrigation performed and 2 Hemovac drains were brought out laterally. The quadriceps tendon and medial retinaculum were closed with figure of 8 #1 Vicryl sutures. The knee was taken through full range of motion and the repair was secure. The subcutaneous tissues were closed with 2-0 Vicryl sutures. Skin was closed with connie. A Danni superficial wound VAC was applied. There was increased difficulty during the procedure due to her obesity BMI 37.5. Patient procedure well. Julian ORTIZ was my physician emergency veterinary assistant who assisted in patient positioning prepping and draping,leg positioning ,soft tissue retraction and instrument management and participated in the closing and will participate in postoperative care of the patient. The patient tolerated the procedure well. I attest to the content of the Intraoperative Record and any orders documented therein. Any exceptions are noted below.
[2018-11-30] MEDS: DOCUSATE SODIUM 100 MG CAP PO SCH (20:53)
[2018-11-30] MEDS: CALCIUM 600MG + VIT D 400 IU TAB PO SCH (20:53)
[2018-11-30] MEDS: SENNA 8.6 MG TAB PO SCH (20:53)
[2018-11-30] MEDS: TRAMADOL HCL 50 MG TABLET PO PRN (20:57)
[2018-11-30] MEDS ORDERED: DOCUSATE SODIUM 100 MG CAP PO SCH (21:00)
[2018-12-01] MEDS: HYDROmorphone INJ 0.5 MG/0.5 ML SYR IV PRN ×2 (03:56→13:23)
[2018-12-01 05:59] LABS: Hematocrit (blood only) 34.4 % (37-47); Hemoglobin 11.6 g/dL (12.0-16.0); Mean Corpuscular Hgb Conc 33.7 g/dL (32-36); Mean Platelet Volume 9.3 fL (7.4-10.4); Platelet Count 165 K/uL (130-400); RDW Coefficient of Variation 14.1 % (11.5-14.5); RDW Standard Deviation 45.1 fL (36.4-46.3); Red Blood Count 3.91 M/uL (4.2-5.4); White Blood Count 8.72 K/uL (4.8-10.8)
[2018-12-01] MEDS: ACETAMINOPHEN 500 MG TAB PO SCH ×3 (05:59→22:30)
[2018-12-01] MEDS: LEVOTHYROXINE SODIUM 100 MCG TABLET PO SCH (06:00)
[2018-12-01 06:27] LABS: BUN Creatinine Ratio 36.8 (10-20); Calcium 8.8 mg/dl (8.5-10.1); Creatinine Clr Calc Pharmacy 92.2 ml/min; Est GFR (African American) 107.4; Est GFR (Non-African American) 92.7; Potassium 4.2 mmol/L (3.5-5.1)
--- NOTE | 2018-12-01 08:54 | Hospitalist Progress Note ---
Date of Service December 01, 2018 Assessment & Plan (1) Osteoarthritis of right knee: - POD# [address] Luna - activity and wound care orders as per ortho - pain control with bowel regimen, PT/OT - monitor H/H for acute blood loss anemia - hgb of 11.6 today (14.7 yesterday) - continue to monitor BP (2) History of TIA (transient ischemic attack): -Continue Plavix (ok by Ortho) (3) Aneurysm: -History of discrete apical aneurysm -No acute issues (4) HTN (hypertension): -BP stable, continue hydrochlorothiazide, losartan, atenolol with hold parameters (5) HLD (hyperlipidemia): -Not on statin therapy secondary to myalgias (6) Hypothyroidism: -Continue levothyroxine (7) RAMIREZ (obstructive sleep apnea): -CPAP as per home settings (8) DVT prophylaxis: -per primary service Patient seen in collaboration with Dr. Blackburn. Please see addendum. Thank you for this consultation. We will follow the patient with you during their hospital stay. You can reach a [facility] via pager @ [phone]. Supervising Physician Co-Signing Physician Notes Patient is seen and examined at bedside. Right knee pain is controlled. Had bowel movement. Had PT OT earlier today. Denies any chest pain, shortness of breath, abdominal pain. On exam patient is obese, no apparent distress, normocephalic atraumatic, lungs are clear to auscultation, S1-S2, no murmur, abdomen soft nontender, grossly no focal neurological deficits, no pedal edema, right knee surgical site in dressing, +drain. Assessment and plan: S/P R TKA. Monitor for postop/acute blood loss anemia. No indication for PRBC transfusion currently. Continue pain control, bowel regimen. Activity, DVT Px as per Primary team. Prediabetes: Last A1c is 6.1. Counseled about lifestyle changes. I personally reviewed the record. Patient is interviewed and examined at bedside. Patient's care is coordinated with Ashlie Handy PA-C. Please refer to the documentation above for details of patient's presentation and for discussion of other issues. Subjective Patient seen and examined in 306-1. Feeling okay today, + surgical site pain in R knee but able to participate in therapy this morning. Was lightheaded with movement this morning and BP was 96/58. Atenolol was held and patient now feels better. BP of 126/73. No fever, chills,headache, chest pain, palpitation or shortness of breath. Tolerating meals without any nausea or vomiting. Urinating well, without dysuria or retention. Not passing flatus and no bowel movement yet post-operatively. Review of Systems Review of Systems: At least ten systems reviewed and negative except as noted in the HPI. Physical Exam Physical Exam: General Appearance: WD/WN, no apparent distress, resting comfortably in bedside chair, about to participate in OT Head: normocephalic, atraumatic Eyes: normal inspection, PERRL, EOMI ENT: hearing grossly normal, pharynx normal Neck: supple, no JVD, no adenopathy Respiratory/Chest: lungs clear to auscultation. No wheezes, rales or rhonci. No respiratory distress or accessory muscle use Cardiovascular: regular rate, rhythm, no murmur, normal peripheral pulses Abdomen/GI: normal bowel sounds, soft, non-tender to palpation Extremities/Musculoskelatal: R knee surgical dressing clean, dry, intact. No calf tenderness, normal capillary refill, no pedal edema Neurologic/Psych: alert, normal mood/affect, oriented x 3 Skin: normal color, warm/dry Results & Data Vital Signs (Past 12 Hours) Vital Signs Temp Pulse Resp BP Pulse Ox 12/01/18 07:16 36.5 C 75 18 126/73 96 12/01/18 04:37 36.5 C 68 16 114/71 97 12/01/18 03:34 36.6 C 84 18 128/77 99 11/30/18 23:35 36.5 C 70 16 112/68 95 Laboratory Results Short CBC 12/01/18 Range/Units 05:45 WBC 8.72 (4.8-10.8) K/uL Hgb 11.6 L (12.0-16.0) g/dL Hct 34.4 L (37-47) % Plt Count 165 (130-400) K/uL BMP 12/01/18 05:45 Sodium 138 Potassium 4.2 Chloride 108 H Carbon Dioxide 27 BUN 23 H Creatinine 0.62 Glucose 113 H Calcium 8.8
--- NOTE | 2018-12-01 08:58 | Orthopedic Progress Note ---
Date of Service December 01, 2018 Assessment & Plan (1) Osteoarthritis of right knee: POD #1, Right TKA PT/ OT DVT proph- Plavix D/C planning- Home w HH As per medicine. Subjective POd #1, doing well, denies sob, cp, n/v. Pain controlled well. Physical Exam Physical Exam: Right knee dressings c/d/i, no drainage. Toes and ankle mobile. No calf tenderness. A&Ox3. Results & Data Vital Signs (Past 12 Hours) Vital Signs Temp Pulse Resp BP Pulse Ox 12/01/18 07:16 36.5 C 75 18 126/73 96 12/01/18 04:37 36.5 C 68 16 114/71 97 12/01/18 03:34 36.6 C 84 18 128/77 99 11/30/18 23:35 36.5 C 70 16 112/68 95
[2018-12-01] MEDS ORDERED: MULTIVITAMIN TAB PO SCH (09:00)
[2018-12-01] MEDS: ATENOLOL 25 MG TABLET PO SCH (09:04)
[2018-12-01] MEDS: MULTIVITAMIN TAB PO SCH (09:05)
[2018-12-01] MEDS: CLOPIDOGREL BISULFATE 75 MG TAB PO SCH (09:05)
[2018-12-01] MEDS: LORATADINE 10 MG TAB PO SCH (09:05)
[2018-12-01] MEDS: hydroCHLOROthiazide 25 MG TAB PO SCH (09:05)
[2018-12-01] MEDS: POTASSIUM CHLORIDE 10 MEQ TABCR PO SCH (09:06)
[2018-12-01] MEDS: LOSARTAN POTASSIUM 25 MG TAB PO SCH (09:06)
[2018-12-01] MEDS: LACTOBACILLUS ACIDOPHILUS (FLORANEX) TAB PO SCH (09:06)
[2018-12-01] MEDS: DOCUSATE SODIUM 100 MG CAP PO SCH ×2 (09:07→20:52)
[2018-12-01] MEDS: CHOLECALCIFEROL 1,000 UNITS TAB PO SCH (09:07)
[2018-12-01] MEDS: VITAMIN B COMPLEX TAB PO SCH (09:07)
[2018-12-01] MEDS: FLUTICASONE PROPIONATE NA SPR 16 GM BTL SCH (09:08)
[2018-12-01] MEDS: TRAMADOL HCL 50 MG TABLET PO PRN ×4 (09:12→22:30)
[2018-12-01] MEDS: KETOROLAC TROMETHAMINE 15 MG/ML VIAL IV SCH ×2 (16:06→20:52)
[2018-12-01] MEDS: SENNA 8.6 MG TAB PO SCH (20:52)
[2018-12-01] MEDS: CALCIUM 600MG + VIT D 400 IU TAB PO SCH (20:52)
[2018-12-02] MEDS: KETOROLAC TROMETHAMINE 15 MG/ML VIAL IV SCH ×2 (04:30→10:35)
[2018-12-02 06:15] LABS: Hematocrit (blood only) 31.5 % (37-47); Hemoglobin 10.5 g/dL (12.0-16.0); Mean Corpuscular Hgb Conc 33.3 g/dL (32-36); Mean Corpuscular Volume 88.5 fL (80-100); Mean Platelet Volume 9.3 fL (7.4-10.4); Platelet Count 158 K/uL (130-400); RDW Coefficient of Variation 14.7 % (11.5-14.5); RDW Standard Deviation 47.4 fL (36.4-46.3); Red Blood Count 3.56 M/uL (4.2-5.4); White Blood Count 6.37 K/uL (4.8-10.8)
[2018-12-02] MEDS: LEVOTHYROXINE SODIUM 100 MCG TABLET PO SCH (06:22)
[2018-12-02] MEDS: TRAMADOL HCL 50 MG TABLET PO PRN ×4 (06:23→21:11)
[2018-12-02] MEDS: ACETAMINOPHEN 500 MG TAB PO SCH ×3 (06:23→21:10)
[2018-12-02 06:56] LABS: BUN Creatinine Ratio 34.6 (10-20); Calcium 8.7 mg/dl (8.5-10.1); Creatinine Clr Calc Pharmacy 100.2 ml/min; Est GFR (African American) 110.4; Est GFR (Non-African American) 95.3; Potassium 3.7 mmol/L (3.5-5.1)
--- NOTE | 2018-12-02 07:54 | Orthopedic Progress Note ---
Date of Service December 02, 2018 Assessment & Plan (1) Osteoarthritis of right knee: POD #2, Right TKA PT/ OT DVT proph- Plavix D/C planning- Home w HH today if pain controlled. As per medicine. Subjective POD #2, states pain is an issue today, is only using tramadol. Physical Exam Physical Exam: Right knee prevena c/d/i, no erythema,no calf tenderness, toes and ankle mobile. A&Ox3. Results & Data Vital Signs (Past 12 Hours) Vital Signs Temp Pulse Resp BP Pulse Ox 12/02/18 07:07 36.5 C 78 20 113/71 94 12/01/18 23:39 36.6 C 79 18 105/69 95
[2018-12-02] MEDS: MULTIVITAMIN TAB PO SCH (08:36)
[2018-12-02] MEDS: DOCUSATE SODIUM 100 MG CAP PO SCH ×2 (08:36→21:10)
[2018-12-02] MEDS: LORATADINE 10 MG TAB PO SCH (08:36)
[2018-12-02] MEDS: FLUTICASONE PROPIONATE NA SPR 16 GM BTL SCH (08:37)
[2018-12-02] MEDS: LACTOBACILLUS ACIDOPHILUS (FLORANEX) TAB PO SCH (08:37)
[2018-12-02] MEDS: hydroCHLOROthiazide 25 MG TAB PO SCH (08:38)
[2018-12-02] MEDS: POTASSIUM CHLORIDE 10 MEQ TABCR PO SCH (08:38)
[2018-12-02] MEDS: CLOPIDOGREL BISULFATE 75 MG TAB PO SCH (08:38)
[2018-12-02] MEDS: CHOLECALCIFEROL 1,000 UNITS TAB PO SCH (08:39)
[2018-12-02] MEDS: LOSARTAN POTASSIUM 25 MG TAB PO SCH (08:39)
[2018-12-02] MEDS: VITAMIN B COMPLEX TAB PO SCH (08:39)
[2018-12-02] MEDS: ATENOLOL 25 MG TABLET PO SCH (08:39)
[2018-12-02] MEDS ORDERED: D5W AND 1/2NSS 1,000 ML IV SCH (13:45)
--- NOTE | 2018-12-02 17:32 | Hospitalist Progress Note ---
Date of Service December 02, 2018 Assessment & Plan (1) Osteoarthritis of right knee: - POD# [address] Luna -Still having significant pain with activity Continue management as per orthopedics - monitor H/H for acute blood loss anemia - hgb of 11.6 today (14.7 yesterday) - (2) History of TIA (transient ischemic attack): -Continue Plavix (ok by Ortho) (3) Aneurysm: -History of discrete apical aneurysm -No acute issues (4) HTN (hypertension): -BP stable, continue hydrochlorothiazide, losartan, atenolol with hold parameters (5) HLD (hyperlipidemia): -Not on statin therapy secondary to myalgias (6) Hypothyroidism: -Continue levothyroxine (7) RAMIREZ (obstructive sleep apnea): -CPAP as per home settings (8) DVT prophylaxis: -per primary service Thank you for this consult We will follow the patient with you during their hospital stay. You can reach a [facility] via pager @ [phone]. Subjective Still having significant pain with activity No fever or chills Physical Exam Constitutional: WD/WN, vitals as above + obese Eyes: PERRL, conjunctivae normal, anicteric sclerae Neck: normal visual inspection Respiratory: normal respiratory effort, lungs clear to auscultation normal respiratory effort Auscultation: lungs clear to auscultation bilaterally Cardiovascular: Rate/Rhythm: regular rate and regular rhythm Vessels: normal peripheral pulses Extremities: no edema Gastrointestinal (Abdomen): normal bowel sounds, soft, nontender, no hepatosplenomegaly Musculoskeletal: Status post right knee surgery drain present Neurologic: PERRL, EOMI, accommodation nl, no face palsy, no dysarthria moves all extremities Psychiatric: A+Ox3, euthymic affect Orientation: alert and oriented x 3 Results & Data Vital Signs (Past 12 Hours) Vital Signs Temp Pulse Pulse Resp BP Pulse Ox 12/02/18 08:35 81 114/72 12/02/18 07:07 36.5 C 78 20 113/71 94
[2018-12-02] MEDS: CALCIUM 600MG + VIT D 400 IU TAB PO SCH (21:10)
[2018-12-02] MEDS: SENNA 8.6 MG TAB PO SCH (21:10)
[2018-12-03] MEDS ORDERED: NITROFURANTOIN MONOHYDRATE 100 MG CAP PO SCH
[2018-12-03] MEDS: TRAMADOL HCL 50 MG TABLET PO PRN ×3 (02:50→13:12)
[2018-12-03] MEDS: ACETAMINOPHEN 500 MG TAB PO SCH ×2 (05:20→13:12)
[2018-12-03] MEDS: LEVOTHYROXINE SODIUM 100 MCG TABLET PO SCH (05:21)
[2018-12-03] MEDS: CLOPIDOGREL BISULFATE 75 MG TAB PO SCH (08:32)
[2018-12-03] MEDS: MULTIVITAMIN TAB PO SCH (08:32)
[2018-12-03] MEDS: LORATADINE 10 MG TAB PO SCH (08:32)
[2018-12-03] MEDS: CHOLECALCIFEROL 1,000 UNITS TAB PO SCH (08:33)
[2018-12-03] MEDS: POTASSIUM CHLORIDE 10 MEQ TABCR PO SCH (08:33)
[2018-12-03] MEDS: DOCUSATE SODIUM 100 MG CAP PO SCH (08:33)
[2018-12-03] MEDS: ATENOLOL 25 MG TABLET PO SCH (08:34)
[2018-12-03] MEDS: FLUTICASONE PROPIONATE NA SPR 16 GM BTL SCH (08:34)
[2018-12-03] MEDS: VITAMIN B COMPLEX TAB PO SCH (08:35)
[2018-12-03] MEDS: LOSARTAN POTASSIUM 25 MG TAB PO SCH (08:35)
[2018-12-03] MEDS: hydroCHLOROthiazide 25 MG TAB PO SCH (08:35)
[2018-12-03] MEDS: LACTOBACILLUS ACIDOPHILUS (FLORANEX) TAB PO SCH (08:36)
--- NOTE | 2018-12-03 08:58 | Orthopedic Progress Note ---
Date of Service December 03, 2018 Assessment & Plan (1) Osteoarthritis of right knee: POD #3, Right TKA PT/ OT DVT proph- Plavix D/C planning- Home w HH today. Subjective Pain is better controlled today. Main complaint this AM is having a hot flash. LH has resolved from yesterday. No other complaints today. Physical Exam Constitutional: WD/WN, vitals as above Musculoskeletal: Knee: + surgical incision (Right knee: Prevena dressing in place and functioning.); knee normal to inspection, no deformity, no skin erythema, no ecchymosis and no surgical drain present Neurologic: normal touch/pain/proprioception and moves all extremities Psychiatric: A+Ox3, euthymic affect Results & Data Vital Signs (Past 12 Hours) Vital Signs Temp Pulse Resp BP Pulse Ox 12/03/18 08:30 95 H 115/72 12/03/18 07:00 37.0 C 83 18 114/70 90 12/02/18 23:08 36.7 C 87 18 105/71 90
--- NOTE | 2018-12-03 12:31 | Hospitalist Progress Note ---
Date of Service December 03, 2018 Assessment & Plan (1) Osteoarthritis of right knee: - POD# [address] Luna -Knee pain has improved markedly The complaint of fever chills of lightheadedness, Evaluated by orthopedics, stable to be discharged home with home health home PT (2) History of TIA (transient ischemic attack): -Continue Plavix (ok by Ortho) (3) Aneurysm: -History of discrete apical aneurysm -No acute issues (4) HTN (hypertension): -BP stable, continue hydrochlorothiazide, losartan, atenolol (5) HLD (hyperlipidemia): -Not on statin therapy secondary to myalgias (6) Hypothyroidism: -Continue levothyroxine (7) RAMIREZ (obstructive sleep apnea): -CPAP as per home settings (8) DVT prophylaxis: -per primary service Patient is medically stable to be discharged home today Subjective Pain is much improved today, able to walk No fever or chills, no dizzy spell or lightheadedness Evaluated by orthopedics today, stable to be discharged home Physical Exam Constitutional: WD/WN, vitals as above + obese Eyes: PERRL, conjunctivae normal, anicteric sclerae Neck: normal visual inspection Respiratory: normal respiratory effort, lungs clear to auscultation normal respiratory effort Auscultation: lungs clear to auscultation bilaterally Cardiovascular: Rate/Rhythm: regular rate and regular rhythm Vessels: normal peripheral pulses Extremities: no edema Gastrointestinal (Abdomen): normal bowel sounds, soft, nontender, no hepatosplenomegaly Musculoskeletal: Spine: normal cervical ROM and no pain with cervical ROM Extremities: no cyanosis and no clubbing Skin: no rashes, warm and dry Neurologic: PERRL, EOMI, accommodation nl, no face palsy, no dysarthria moves all extremities Psychiatric: A+Ox3, euthymic affect Orientation: alert and oriented x 3 Results & Data Vital Signs (Past 12 Hours) Vital Signs Temp Pulse Resp BP Pulse Ox 12/03/18 08:30 95 H 115/72 12/03/18 07:00 37.0 C 83 18 114/70 90
[2018-12-03 14:54] LABS: Appearance Urine Clear (Clear); Bacteria Urine Automated Negative (Negative); Bilirubin Urine Negative (Negative); Blood Urine Negative (Negative); Color Urine Dark Yellow; Epithelial Cell Urine Auto >30 /lpf (0-5); Glucose Urine UA Negative (Negative); Ketones Urine Trace (Negative); Leukocyte Esterase Urine 1+ (Negative); Nitrite Urine Negative (Negative); Protein Urine Negative (Negative); RBC Urine Automated 0-4 /hpf (0-4); Specific Gravity Urine 1.024 (1.000-1.030); Urobilinogen Urine Negative (Negative); pH Urine 5.5 (4.5-7.5)
[2018-12-03] MEDS ORDERED: NITROFURANTOIN MONOHYDRATE 100 MG CAP PO STA (15:12)
--- NOTE | 2018-12-03 15:28 | Hospitalist Progress Note ---
Date of Service December 03, 2018 Subjective pt is ready to be discharged complains of burning sensation with urination , increased frequency no blood in urine no fever or chills UA ( ontained today ) :+ leukocyte esterase , negative nitrate , urine culture -pending , will not be available for next 24-48 hrs -will follow report and adjust Abx if needed pt ordered PO Macrobid 100 mg for possible cystitis will need 5 days tx -script sent to her pharmacy family physician Dr Aceves follow up appointment scheduled for 12/12/18 at [facility] Yajaira Carson MD Results & Data Vital Signs (Past 12 Hours) Vital Signs Temp Pulse Pulse Resp BP Pulse Ox 12/03/18 15:03 36.7 C 74 16 109/68 96 12/03/18 08:30 95 H 115/72 12/03/18 07:00 37.0 C 83 18 114/70 90
--- NOTE | 2018-12-14 21:27 | Discharge Summary ---
DATE OF ADMISSION: 11/30/2018 DATE OF DISCHARGE: 12/03/2018 HISTORY OF PRESENT ILLNESS: This is a 68-year-old female patient of Dr. Luna, is complaining of chronic right knee pain, longstanding, progressively getting worse. She has been diagnosed with end-stage osteoarthritis and elected to proceed with a right total knee arthroplasty. 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 POSTOPERATIVE COURSE: The patient underwent a right total knee arthroplasty on 11/30/2018. She was followed closely with medical consultation, DVT prophylaxis in the form of Plavix, which is what she was on preoperatively, physical therapy and medical consultation. Postoperative day 2, she was having of irretractable pain, that was noted and she was taking oxycodone ____5 mg blets as needed. This did resolve her pain issues. On 12/03/2018, she started to complain of urinary tract complaints. Medical consultation did do a urinalysis and preemptive urinalysis showed positive leukocyte esterase with a culture pending. The patient was put on Macrobid 100 mg for possible cystitis and was advised to follow up with her primary care physician, Dr. Lubin after her 5 day treatment of her probable urinary tract infections. Otherwise, she was discharged home with home health on 12/03/2018. PHYSICAL EXAMINATION: On discharge, right knee Prevena wound VAC was clean, dry and intact. There was no erythema and no calf tenderness. Toes and ankle were mobile. The patient was alert and oriented x3 and pleasant. She also has a history of coronary artery disease status post OH, hypertension, hypercholesterolemia, irregular heartbeat, heart wall aneurysm, anxiety, history of TIA, hypothyroidism, osteoarthritis, spine problems, sciatica, obesity and skin cancer. PLAN: The patient was discharged home with home health services. She will follow up with her family physician concerning her possible postoperative UTI. She will continue her preadmission medications with the addition of pain medications. She will continue Plavix as ordered by her family physician and follow up with Dr. Luna as scheduled as an outpatient. MARY IMOGEN[facility]ASSETT HOSPITALJodie
== END 2018-12-03 15:50 | disposition home health service (06) | DRG 470 ==
LOC: ASU 05:09 → 3E 09:12

== ENCOUNTER 2022-11-16 18:31 | Observation (INO) ==
--- NOTE | 2022-11-16 18:51 | Emergency Department Note ---
History of Present Illness General Chief complaint: Chest Pain Stated complaint: CHEST PAIN Time Seen by Provider: 11/16/22 18:36 Source: patient, family ( who is at the bedside), RN notes reviewed and old records reviewed (Previous ER visits.) Mode of arrival: ambulatory Limitations: no limitations History of Present Illness Maximum Pain Intensity: 8 This patient is a 72-year-old female who was sent over from urgent care after having elevated troponin. She is been sick for couple weeks with a cough and she describes as bronchitis she woke up this morning had some mild left-sided chest pain that she just thought was from sore from coughing. Is reproducible with palpation. She feels slightly short of breath urgent care did extensive work-up including EKG which the patient tells me looked okay chest x-ray which showed no acute findings and labs. Her labs were significant for significantly elevated troponin at over thousand. She just finished prednisone and antibiotics. Nothing particular makes her pain better or worse is no pleuritic component. The exception to this is it hurts with palpation. She does have multiple cardiac risk factors. She is some mild chronic lower extremity edema. When the pain was bad it was 8 out of 10 at present she has just a mild amount of pain 4 out of 10 and declines anything for pain Home Medications Medication Instructions Recorded Confirmed Type fluticasone propionate 50 2 spray intranasal QAM 03/22/18 11/16/22 History mcg/actuation nasal spray,suspension lorazepam 0.5 mg tablet 0.5 mg PO TID PRN Anxiety 03/22/18 11/16/22 History losartan 25 mg tablet 25 mg PO QAM 03/22/18 11/16/22 History calcium carbonate 600 mg-vitamin 1 tab PO QPM 11/11/18 11/16/22 History D3 10 mcg (400 unit) tablet (Calcium 600 + D(3)) clopidogrel 75 mg tablet (Plavix) 75 mg PO QAM 11/11/18 11/16/22 History docusate sodium 100 mg capsule 100 mg PO QPM 11/11/18 11/16/22 History (Colace) lactobacillus comb no.10 20 20,000 mmu cells PO QAM 11/11/18 11/16/22 History billion cell capsule (Probiotic) loratadine 10 mg tablet 10 mg PO QAM PRN Allergy Symptoms 11/11/18 11/16/22 History vitamin B complex 1 tab PO QAM 11/11/18 11/16/22 History hydrochlorothiazide 25 mg tablet 12.5 mg PO Q OTHER DAY 03/27/21 11/16/22 History potassium chloride 10 mEq 10 meq PO Q OTHER DAY 03/27/21 11/16/22 History tablet,extended release cinnamon bark 500 mg capsule 500 mg PO DAILY 11/16/22 11/16/22 History (Cinnamon) levothyroxine 88 mcg tablet 88 mcg PO DAILY 11/16/22 11/16/22 History (Levoxyl) lovastatin 10 mg tablet 10 mg PO HS 11/16/22 11/16/22 History magnesium oxide 400 mg PO DAILY 11/16/22 11/16/22 History metformin 500 mg tablet,extended 500 mg PO BID 11/16/22 11/16/22 History release 24 hr metoprolol succinate 25 mg 12.5 mg PO DAILY 11/16/22 11/16/22 History tablet,extended release 24 hr metoprolol succinate 25 mg 25 mg PO HS 11/16/22 11/16/22 History tablet,extended release 24 hr multivitamin 1 tab PO QAM 11/16/22 11/16/22 History ondansetron 4 mg disintegrating 4 mg PO Q8H PRN Nausea 11/16/22 11/16/22 History tablet tramadol 50 mg tablet 50 mg PO Q8H PRN Pain 11/16/22 11/16/22 History Allergies Allergy/AdvReac Type Severity Reaction Status Date / Time atorvastatin AdvReac Intermediate LEG CRAMPS Verified 11/16/22 19:33 levofloxacin AdvReac Intermediate "GOOFY Verified 11/16/22 19:33 FEELING", DRY MOUTH Past Med/Surg History Medical History Aneurysm Discrete apical aneurysm Chronic back pain DM type 2 (diabetes mellitus, type 2) History of left heart catheterization History of TIA (transient ischemic attack) HLD (hyperlipidemia) HTN (hypertension) Hypothyroidism Obesity RAMIREZ (obstructive sleep apnea) CPAP Osteoarthritis Surgical History H/O tubal ligation Status post laser ablation of incompetent vein Family History Father , 54 Lung cancer Mother , 83 T2DM (type 2 diabetes mellitus) Stroke Son Hypertension Daughter Hypertension Mother Family history of diabetes mellitus Social History Smoking Status: Never smoker Second Hand Exposure: No; Do You Dip or Chew Tobacco: No; Tobacco Cessation Education Requested by Patient: No Hx Alcohol Use: No Hx Substance Use: No Preferred Language: Turkish Communication Ability: Effective Nursing Tech Required: No Beliefs That Will Affect Care: None marital status: Current Living Situation: Spouse current occupational status: retired current occupation: Former [employer] employee Other Information That Helps Us Care for You: No Feels Safe at Home: Yes Safety Concerns: Feels Safe At This Time Assistive Devices: Denture - Upper and Glasses Immunizations: Past medical historydenies cardiac stents or bypass. She is on Plavix due to history of TIA. She is also diabetic has hypertension and hypercholesteremia. Family historymother had a cardiac disease Social history does not smoke or drink or. She is followed by Dr. Uribe and also by Dr. Gus Lynn. Review of Systems A total of 10 systems reviewed and were otherwise negative Physical Exam Vital Signs Vital Signs - 24 hr 11/16/22 18:32 11/16/22 18:36 11/16/22 18:47 Temperature 36.8 C Temperature Source Temporal Artery Scan Pulse Rate 92 H 107 H Pulse Rate from SpO2 Sensor Respiratory Rate 20 24 Respiratory Effort / Characteristics Non-Labored Spontaneous Non-Labored Spontaneous Respiratory Depth Normal Normal Blood Pressure 169/77 H Blood Pressure Mean 107 Pulse Oximetry 95 Oxygen Delivery Method Room Air Sepsis Recent Fever Within 48 Hours No Sepsis New/Unexplained Change in Mental Status No Sepsis Action Taken by Nursing No Action Required 11/16/22 18:49 11/16/22 18:49 11/16/22 18:48 Temperature Temperature Source Pulse Rate 88 96 H Pulse Rate from SpO2 Sensor 90 Respiratory Rate 21 Respiratory Effort / Characteristics Respiratory Depth Blood Pressure 157/76 H Blood Pressure Mean 103 Pulse Oximetry 96 Oxygen Delivery Method Room Air Sepsis Recent Fever Within 48 Hours Sepsis New/Unexplained Change in Mental Status Sepsis Action Taken by Nursing 11/16/22 19:00 11/16/22 19:00 Temperature Temperature Source Pulse Rate 86 Pulse Rate from SpO2 Sensor 76 Respiratory Rate 20 Respiratory Effort / Characteristics Respiratory Depth Blood Pressure 154/70 H Blood Pressure Mean 98 Pulse Oximetry 97 Oxygen Delivery Method Sepsis Recent Fever Within 48 Hours Sepsis New/Unexplained Change in Mental Status Sepsis Action Taken by Nursing General: Well developed well nourished in no acute distress, breathing comfortably on room air. Normal speech HEENT: Normal cephalic atraumatic. Pupils are equal round and reactive to light. Extraocular movements are intact. Oropharynx is pink with moist mucous membranes. No swelling of the mouth lips or tongue. Neck: Supple with a midline trachea. No meningeal signs or stiffness, no JVD or bruits. No Stridor. Chest: Clear to auscultation bilaterally. No wheezes or rhonchi. No increased work of breathing. She is a moderately reproducibly tender in the left chest. No crepitus Heart: Regular rate and rhythm without murmurs or gallops. Abdomen: Soft nontender, nondistended without rebound guarding or rigidity. Extremities: No cyanosis clubbing or edema. No calf tenderness or assymetry Spine/Back. Non tender to palpation. No CVA tenderness Skin: Good turgor without rashes. Neurologic exam: Cranial nerves two through 12 are intact. Motor and sensation are intact and symmetrical throughout. Course Administered Medications Docusate Sodium (Docusate Sodium 100 Mg Cap) 100 mg PO QPM [facility] Stop: 12/16/22 21:09 Last Admin: 11/16/22 21:59 Dose: Not Given Documented By: MARTIR Heparin Sodium/Dextrose (Heparin Sodium/Dextrose) 25,000 units in 500 mls @ 23 mls/hr IV .[id number] [facility]; Protocol Stop: 12/16/22 20:59 Last Admin: 11/16/22 21:59 Dose: 1,150 units/hr, 23 mls/hr Documented By: MARTIR Co-signed By: FREDDY Insulin Aspart (Insulin Aspart Per Unit Charge) 0 units SC Q6 [facility] Stop: 12/16/22 21:44 Last Admin: 11/16/22 21:34 Dose: Not Given Documented By: MARTIR Lovastatin (Lovastatin 20 Mg Tab) 10 mg PO HS [facility] Stop: 12/16/22 21:09 Last Admin: 11/16/22 22:00 Dose: 10 mg Documented By: MARTIR Discontinued Medications Heparin Sodium (Porcine) (Heparin Sod (Porcine) 1000 Unit/Ml) 5,000 units IV NOW ONE Stop: 11/16/22 21:16 Last Admin: 11/16/22 21:28 Dose: 5,000 units Documented By: MARTIR Co-signed By: TONY Acetaminophen (Ofirmev) 1,000 mg in 100 mls @ 400 mls/hr IV NOW STA Stop: 11/16/22 19:29 Last Infusion: 11/16/22 20:00 Dose: 0 mls/hr Documented By: Admin: 11/16/22 19:21 Dose: 400 mls/hr Documented By: ROBERT Ioversol (Optiray 320 500ml) 113 ml IV ONCE ONE Stop: 11/16/22 20:04 Last Admin: 11/16/22 20:03 Dose: 113 ml Documented By: BETH Metoprolol Tartrate (Metoprolol Tartrate 25 Mg Tab) 25 mg PO ONE STA Stop: 11/16/22 20:41 Last Admin: 11/16/22 21:27 Dose: 25 mg Documented By: MARTIR Nitroglycerin (Nitroglycerin 2% Ointment 30gm Tube) 1 inch EXT ONE STA Stop: 11/16/22 20:41 Last Admin: 11/16/22 21:28 Dose: 1 inch Documented By: MARTIR Medical Decision Making Differential Diagnosis Acute coronary syndrome, arrhythmia, myocarditis, pericarditis, valvular heart disease, viral illness, aneurysm, infection Medical Records Attestation: I reviewed the patient's medical records. Home Medications Current Medication List: was personally reviewed by me Laboratory Data Attestation: I reviewed the patient's lab results. Lab Results 11/16/22 11/16/22 11/16/22 Range/Units 18:51 18:51 18:51 PT 10.5 (9.0-12.0) Seconds INR 1.0 (0.9-1.1) APTT 25.9 (21.0-31.0) Seconds PTT Ratio 0.9 Magnesium 1.8 (1.7-2.4) mg/dl Troponin I High Sens 2287.0 H* D (0-14) pg/ml SARS-CoV-2, RNA, NAAT (NEGATIVE) 11/16/22 Range/Units 18:51 PT (9.0-12.0) Seconds INR (0.9-1.1) APTT (21.0-31.0) Seconds PTT Ratio Magnesium (1.7-2.4) mg/dl Troponin I High Sens (0-14) pg/ml SARS-CoV-2, RNA, NAAT NEGATIVE (NEGATIVE) Imaging Data Attestation: I personally reviewed and interpreted this imaging study as follows: My Impression: Chest x-rayI have reviewed the chest x-ray was done here a couple hours ago. There is no congestive heart failure, pneumonia, pneumothorax. Does not appear to be significant cardiomegaly Chest CTno evidence of aneurysm or dissection. Radiologist's Impression: Chest CTA 11/16/22 19:19 Exam(s): CTA CHEST W/WO Contrast IV Amt: 111ml EXAM: CT Angiography Chest With Intravenous Contrast CLINICAL HISTORY: Reason for exam: chest pain. TECHNIQUE: Axial computed tomographic angiography images of the chest with intravenous contrast. CTDI is 64.63 mGy and DLP is 1605.4 mGy-cm. Automated exposure control was utilized for the study. A dose lowering technique was utilized adhering to the principles of ALARA. MIP reconstructed images were created and reviewed. CONTRAST: Patient received 111ml of IV contrast COMPARISON: No relevant prior studies available. FINDINGS: Pulmonary arteries: Unremarkable. No pulmonary embolism. Aorta: Atherosclerotic changes of the aorta. No thoracic aortic aneurysm. Lungs: Unremarkable. No mass. No consolidation. Pleural space: Unremarkable. No significant effusion. No pneumothorax. Heart: Mild cardiomegaly. No significant pericardial effusion. No evidence of RV dysfunction. Bones/joints: Degenerative changes of the spine. No acute fracture. No dislocation. Soft tissues: Unremarkable. Lymph nodes: Unremarkable. No enlarged lymph nodes. IMPRESSION: No acute findings in the visualized arteries of the chest. Electronically signed by: Crow Carlos MD 11/16/22 20:22 PM ECG Data Attestation: I personally reviewed and interpreted this ECG as follows: Indication: + chest pain Rate (beats per minute): 94 Rhythm: + normal sinus ECG Intervals/blocks: + Normal QRS, + Normal QT and + Normal MA ECG [place]: + Normal ECG ST segments: + Normal ST segments ECG Findings: no PACs or no PVCs Comparison ECG Date: from (11/18/18) Change: no significant change Additional Comments: EKG #2: Normal sinus rhythm with a rate of 80. No acute ischemic changes or ectopy. No change compared to EKG #1. No ST segment elevations or depression. MDM Narrative This patient comes in as described above. She was placed in room A10. She is here for treatment and evaluation of chest pain she is feeling significantly better compared to earlier she has been sick for several weeks was noted that his troponin was significantly elevated. I offered her pain medication she decl ined she also declined aspirin initially as she is on Plavix. Her EKG does not show any findings to suggest STEMI at this point. There may be some decrease voltage laterally compared to before but otherwise no acute change. Chest x-ray was unremarkable there is no congestive heart failure, pneumonia, pneumothorax. I did order second troponin and additional blood testing as well as COVID testing. Also ordered additional EKG to ensure this was not evolving process. I did consult the [facility] hospitalist group and talked to Sulma Escudero at length. I also consulted [facility] cardiology. Her repeat EKG shows no change compared to the first and no evidence suggest STEMI. She appears very comfortable. I did discuss case at length with Dr. Campos from [facility] cardiology, he agrees with giving her something for chest wall pain such as IV Tylenol and IV heparin. We also discussed doing a CT angio first and he agreed with this and if this is negative we will should consider heparinizing her. Her D-dimer was negative so PE is unlikely but before we heparinize her 1 to make sure there is no vascular pathology. Her second troponin was trending upward at 2287 although she looks well. CAT scan of her chest was unremarkable for PE or other pathology. I did consult Sulma escudero from [facility] and discussed the case with her. she has seen the patient and is going to heparinize the patient and admit the patient for further treatment and evaluation Continuous cardiac monitoring: Orders placed in EMR for continuous cardiac monitoring: Upon my evaluation patient to be normal sinus with a rate of 90 Impression & Plan Chest pain, Elevated troponin, HTN (hypertension), Lab test negative for COVID- 19 virus Discharge Plan Visit Data Chief Complaint: Chest Pain Stated Complaint: CHEST PAIN ED Provider: Kirill Shipman Discharge Problem: Chest pain, Elevated troponin, HTN (hypertension), Lab test negative for COVID- 19 virus Patient Disposition: Admitted As Inpatient Discharge Instructions Interventions: ED Discharge Assessment Last Done: 11/16/22 20:51
[2022-11-16] MEDS ORDERED: ACETAMINOPHEN 1,000 MG/100 ML VIAL IV STA (19:15)
[2022-11-16] MEDS ORDERED: OPTIRAY 320 500ml IV ONE (20:03)
[2022-11-16 20:19] LABS: Partial Thromboplastin Ratio 0.9; Partial Thromboplastin Time 25.9 Seconds (21.0-31.0); Prothrombin Time 10.5 Seconds (9.0-12.0)
--- NOTE | 2022-11-16 20:23 | CT Scan Report ---
Exam(s): CTA CHEST W/WO Contrast IV Amt: 111ml EXAM: CT Angiography Chest With Intravenous Contrast CLINICAL HISTORY: Reason for exam: chest pain. TECHNIQUE: Axial computed tomographic angiography images of the chest with intravenous contrast. CTDI is 64.63 mGy and DLP is 1605.4 mGy-cm. Automated exposure control was utilized for the study. A dose lowering technique was utilized adhering to the principles of ALARA. MIP reconstructed images were created and reviewed. CONTRAST: Patient received 111ml of IV contrast COMPARISON: No relevant prior studies available. FINDINGS: Pulmonary arteries: Unremarkable. No pulmonary embolism. Aorta: Atherosclerotic changes of the aorta. No thoracic aortic aneurysm. Lungs: Unremarkable. No mass. No consolidation. Pleural space: Unremarkable. No significant effusion. No pneumothorax. Heart: Mild cardiomegaly. No significant pericardial effusion. No evidence of RV dysfunction. Bones/joints: Degenerative changes of the spine. No acute fracture. No dislocation. Soft tissues: Unremarkable. Lymph nodes: Unremarkable. No enlarged lymph nodes. IMPRESSION: No acute findings in the visualized arteries of the chest. Electronically signed by: Crow Carlos MD 11/16/22 20:22 PM
[2022-11-16] MEDS ORDERED: Heparin IV Adult Wt-Based Standard WITH Bolus Protocol IV STA (20:38)
[2022-11-16] MEDS ORDERED: METOPROLOL TARTRATE 25 MG TAB PO STA (20:40)
[2022-11-16] MEDS ORDERED: NITROGLYCERIN 2% OINTMENT 30GM TUBE EXT STA (20:40)
[2022-11-16] MEDS ORDERED: HEPARIN SODIUM/DEXTROSE 25,000 UNITS/500 ML BAG IV SCH (21:00)
[2022-11-16] MEDS ORDERED: HEPARIN SOD (PORCINE) 1000 UNIT/ML IV ONE ×2 (21:00→21:15)
--- NOTE | 2022-11-16 21:01 | History & Physical Report ---
Date of Service November 16, 2022 Assessment & Plan (1) Elevated troponin: (2) Chest pain: Plan: Admit to telemetry Patient presenting by referral of [facility] after she was evaluated there earlier today for ongoing bronchitis symptoms and left-sided chest pain. [facility] ent was referred for labs that showed troponin 1700. Pain reproducible on exam however patient states that is not the same pain she was experiencing earlier today. Remote history of cardiac cath in 1996 --reportedly normal coronary arteries, full report not available Repeat troponin 2287. EKG without acute ST changes. CTA chest negative for dissection and pulmonary embolism. Start IV heparin for possible NSTEMI. 1 inch Nitropaste. Metoprolol tartrate 25 mg BID started in favor of home dose metoprolol succinate Patient on Plavix for history of TIA, will continue and add aspirin. Continue statin. 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 Barnes via [place] text. (3) Bronchitis: Plan: Patient completed course of azithromycin and prednisone yesterday No evidence of pneumonia on CT chest Hold on additional antibiotics and steroids at this time. Continue supportive care. 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 Montes. I spent a total of 90 minutes coordinating, documenting, and providing care for this patient excluding time spent in the performance of separately billed ser vices. This included personally reviewing all current laboratories and imaging studies, medication reconciliation, outpatient chart review, and discussion with specialists. History of Present Illness Chief Complaint: Chest pain Primary Care Provider: Ismael Aceves MD 72-year-old female with PMH dyslipidemia, hypothyroidism, DM type II, RAMIREZ on CPAP, HTN, small apical aneurysm, history of TIA, anxiety, and other problems listed below who presents the ED for evaluation of chest pain. History obtained from the patient and review of outpatient PCP and cardiology records. Patient seen by PCP on 11/10 and started on a course of azithromycin and prednisone for bronchitis. Patient completed both courses yesterday. Patient states that whenever she woke up this morning, she had a left-sided chest pain that was radiating into her left shoulder. Patient describes the pain as a pressure sensation. No specific causative or relieving factors. Patient reports several episodes throughout the day today. She states that she has had an ongoing nonproductive harsh cough. Reports some mild shortness of breath. Denies lightheadedness, dizziness, diaphoresis, syncopal events. No abdominal pain or nausea. Denies fevers and chills. No urinary symptoms. Patient was evaluated at [facility] today. It was felt that patient likely had costochondritis since pain was reproducible. Patient was referred for labs including troponin that resulted at 1700. Patient was advised to come to the ED for further evaluation. In the ED, patient is hemodynamically stable. CTA chest negative for acute findings. Repeat troponin 2287. EKG without acute ST changes. Patient was given IV Tylenol. She denies current chest pain. Allergies Allergy/AdvReac Type Severity Reaction Status Date / Time atorvastatin AdvReac Intermediate LEG CRAMPS Verified 11/16/22 19:33 levofloxacin AdvReac Intermediate "GOOFY Verified 11/16/22 19:33 FEELING", DRY MOUTH Home Medications Medication Instructions Recorded Confirmed Type fluticasone propionate 50 2 spray intranasal QAM 03/22/18 11/16/22 History mcg/actuation nasal spray,suspension lorazepam 0.5 mg tablet 0.5 mg PO TID PRN Anxiety 03/22/18 11/16/22 History losartan 25 mg tablet 25 mg PO QAM 03/22/18 11/16/22 History calcium carbonate 600 mg-vitamin 1 tab PO QPM 11/11/18 11/16/22 History D3 10 mcg (400 unit) tablet (Calcium 600 + D(3)) clopidogrel 75 mg tablet (Plavix) 75 mg PO QAM 11/11/18 11/16/22 History docusate sodium 100 mg capsule 100 mg PO QPM 11/11/18 11/16/22 History (Colace) lactobacillus comb no.10 20 20,000 mmu cells PO QAM 11/11/18 11/16/22 History billion cell capsule (Probiotic) loratadine 10 mg tablet 10 mg PO QAM PRN Allergy Symptoms 11/11/18 11/16/22 History vitamin B complex 1 tab PO QAM 11/11/18 11/16/22 History hydrochlorothiazide 25 mg tablet 12.5 mg PO Q OTHER DAY 03/27/21 11/16/22 History potassium chloride 10 mEq 10 meq PO Q OTHER DAY 03/27/21 11/16/22 History tablet,extended release cinnamon bark 500 mg capsule 500 mg PO DAILY 11/16/22 11/16/22 History (Cinnamon) levothyroxine 88 mcg tablet 88 mcg PO DAILY 11/16/22 11/16/22 History (Levoxyl) lovastatin 10 mg tablet 10 mg PO HS 11/16/22 11/16/22 History magnesium oxide 400 mg PO DAILY 11/16/22 11/16/22 History metformin 500 mg tablet,extended 500 mg PO BID 11/16/22 11/16/22 History release 24 hr metoprolol succinate 25 mg 12.5 mg PO DAILY 11/16/22 11/16/22 History tablet,extended release 24 hr metoprolol succinate 25 mg 25 mg PO HS 11/16/22 11/16/22 History tablet,extended release 24 hr multivitamin 1 tab PO QAM 11/16/22 11/16/22 History ondansetron 4 mg disintegrating 4 mg PO Q8H PRN Nausea 11/16/22 11/16/22 History tablet tramadol 50 mg tablet 50 mg PO Q8H PRN Pain 11/16/22 11/16/22 History Past Med/Surg History Medical History Aneurysm Discrete apical aneurysm Chronic back pain DM type 2 (diabetes mellitus, type 2) History of left heart catheterization History of TIA (transient ischemic attack) HLD (hyperlipidemia) HTN (hypertension) Hypothyroidism Obesity RAMIREZ (obstructive sleep apnea) CPAP Osteoarthritis Surgical History H/O tubal ligation Status post laser ablation of incompetent vein Family History Father , 54 Lung cancer Mother , 83 T2DM (type 2 diabetes mellitus) Stroke Son Hypertension Daughter Hypertension Mother Family history of diabetes mellitus Social History Smoking Status: Never smoker Second Hand Exposure: No; Do You Dip or Chew Tobacco: No; Tobacco Cessation Education Requested by Patient: No Hx Alcohol Use: No Hx Substance Use: No Preferred Language: [place] Communication Ability: Effective Farm Operator Required: No Beliefs That Will Affect Care: None marital status: Current Living Situation: Spouse current occupational status: retired current occupation: Former [employer] employee Other Information That Helps Us Care for You: No Feels Safe at Home: Yes Safety Concerns: Feels Safe At This Time Assistive Devices: Denture - Upper and Glasses Review of Systems Review of Systems: ROS per HPI, all other systems reviewed and negative Physical Exam Constitutional: WD/WN, vitals as above Eyes: PERRL, conjunctivae normal, anicteric sclerae ENMT: external ear and nose normal, oropharynx normal Respiratory: normal respiratory effort, lungs clear to auscultation Cardiovascular: Rate/Rhythm: regular rate and regular rhythm Vessels: normal peripheral pulses Extremities: + edema (Trace ankle edema noted) Gastrointestinal (Abdomen): normal bowel sounds, soft, nontender, no hepatosplenomegaly Musculoskeletal: no cyanosis or clubbing, extremities motor strength 5/5 Skin: no rashes, warm and dry Neurologic: PERRL, EOMI, accommodation nl, no face palsy, no dysarthria Psychiatric: A+Ox3, euthymic affect Results & Data Results & Data Vital Signs (Past 12 Hours) Vital Signs Temp Pulse Resp BP Pulse Ox O2 Del Method 11/16/22 20:32 140/84 11/16/22 20:32 89 21 96 Room Air 11/16/22 20:31 81 18 96 11/16/22 19:30 85 23 98 11/16/22 19:30 156/77 H 11/16/22 19:00 86 20 97 11/16/22 19:00 154/70 H 11/16/22 18:48 96 H 11/16/22 18:49 157/76 H 11/16/22 18:49 88 21 96 Room Air 11/16/22 18:47 107 H 24 11/16/22 18:32 36.8 C 92 H 20 169/77 H 95 Room Air Code Status & VTE Plan Code Status Patient is a full code as per my discussion with her. VTE Prophylaxis Plan VTE Prophylaxis will be ordered: Yes Supervising Physician Co-Signing Physician Notes Care coordinated with SUE Lew . Agree with able note. Patient seen and examined. Please refer to her notes for full details. Vital signs reviewed. Physical exam: General exam: Alert and oriented. Not in acute distress. CVS: S1 and S2 heard, regular rate and rhythm, no murmurs. RS: Clear to auscultation, no wheezing or crackles. ABD: Soft, bowel sounds present, nontender, no distention. VEHICLE DAMAGE APPRAISER: Nonfocal. EXT: No edema, no erythema. Labs: Reviewed. Assessment and plan: 72F who was finished course of steroid and azithromycin yeterday for bronchitis comes asshe developed left sided chest pain today morning going to left arm on and off. chest pain seems more with cough. Afebrile. Has some SOB. No nausea. Resting comfortable. LAbs showed elevated troponin. NSTEMI Troponin trending up on nitro paste, iv heparin on plavix, statin and b jung echo npo cardio consult RAMIREZ cpap q hs Bronchitis parainfluenza droplet precautions will monitor. Other diagnosis and plan of care as per SUE Lew. Robby parmar MD. (2) Chest pain Chest pain type: precordial pain Qualified Code(s): R07.2 - Precordial pain
[2022-11-16] MEDS ORDERED: GLUCOSE 40% GEL 15 GM TUBE PO PRN (21:10)
[2022-11-16] MEDS ORDERED: CARBOHYDRATES FOR HYPOGLYCEMIA PO PRN (21:10)
[2022-11-16] MEDS ORDERED: GLUCAGON FOR INJ 1 MG VIAL SQ PRN (21:10)
[2022-11-16] MEDS ORDERED: DEXTROSE 50% 50 ML SYRINGE IV PRN (21:10)
[2022-11-16] MEDS ORDERED: LORazepam 0.5 MG TAB PO PRN (21:10)
[2022-11-16] MEDS ORDERED: GLUCOSE 10 TAB/TUBE PO PRN (21:10)
[2022-11-16] MEDS: INSULIN ASPART PER UNIT CHARGE SC SCH (21:34)
[2022-11-16 21:35] LABS: Adenovirus PCR Not Detected (NotDetected); Bordetella parapertussis PCR Not Detected (NotDetected); Bordetella pertussis PCR Not Detected (NotDetected); Chlamydia pneumoniae PCR Not Detected (NotDetected); Coronavirus 229E PCR Not Detected (NotDetected); Coronavirus CoV-2 (COVID19)PCR Not Detected (NotDetected); Coronavirus HKU1 PCR Not Detected (NotDetected); Coronavirus NL63 PCR Not Detected (NotDetected); Coronavirus OC43PCR Not Detected (NotDetected); Human Metapneumovirus PCR Not Detected (NotDetected); Influenza A PCR Not Detected (NotDetected); Influenza B PCR Not Detected (NotDetected); Mycoplasma pneumoniae PCR Not Detected (NotDetected); Parainfluenza Virus 1 PCR Not Detected (NotDetected); Parainfluenza Virus 2 PCR Not Detected (NotDetected); Parainfluenza Virus 3 PCR Not Detected (NotDetected); Respiratory Syncytial VirusPCR Not Detected (NotDetected); Rhinovirus/Enterovirus PCR Not Detected (NotDetected)
[2022-11-16 21:51] LABS: Parainfluenza Virus 4 PCR DETECTED (NotDetected)
[2022-11-16] MEDS: DOCUSATE SODIUM 100 MG CAP PO SCH (21:59)
[2022-11-16] MEDS: LOVASTATIN 20 MG TAB PO SCH (22:00)
[2022-11-17] MEDS: ACETAMINOPHEN 325 MG TAB PO PRN ×3 (03:34→20:24)
[2022-11-17 03:35] LABS: Hematocrit (blood only) 40.4 % (37.0-47.0); Hemoglobin 13.5 g/dl (12.0-16.0); Mean Corpuscular Hemoglobin 28.3 pg (25.0-34.0); Mean Corpuscular Hgb Conc 33.4 g/dL (32.0-36.0); Mean Corpuscular Volume 84.7 fL (80.0-100.0); Mean Platelet Volume 9.2 fL (9.4-12.4); Platelet Count 226 K/uL (130-400); RDW Coefficient of Variation 13.6 % (11.5-14.5); RDW Standard Deviation 42.1 fL (36.4-46.3); Red Blood Count 4.77 M/uL (4.20-5.40); White Blood Count 9.88 K/ul (4.8-10.8)
[2022-11-17 03:53] LABS: BUN Creatinine Ratio 21.3 (10-20); Calcium 9.2 mg/dl (8.6-10.3); Chol HDL Ratio 3.7 (0-5); Creatinine Clr Calc Pharmacy 83.8 ml/min; Est GFR (Non-African American) 90.6 ml/min; Potassium 3.8 mmol/L (3.5-5.1)
[2022-11-17 04:18] LABS: Partial Thromboplastin Ratio 2.3
[2022-11-17 04:37] LABS: Partial Thromboplastin Time 65.2 Seconds (21.0-31.0)
[2022-11-17] MEDS: NITROGLYCERIN 2% OINTMENT 30GM TUBE EXT SCH ×2 (06:16→16:26)
[2022-11-17] MEDS: LEVOTHYROXINE SODIUM 88 MCG TABLET PO SCH (06:16)
[2022-11-17] MEDS: INSULIN ASPART PER UNIT CHARGE SC SCH ×4 (06:17→20:22)
[2022-11-17 07:08] LABS: Estimated Average Glucose 117 mg/dl; Hemoglobin A1C 5.7 % (4.5-5.6)
[2022-11-17] MEDS: CLOPIDOGREL BISULFATE 75 MG TAB PO SCH (09:04)
[2022-11-17] MEDS: METOPROLOL TARTRATE 25 MG TAB PO SCH ×2 (09:04→20:15)
[2022-11-17] MEDS: MAGNESIUM OXIDE 400 MG TAB PO SCH (09:05)
[2022-11-17] MEDS: ASPIRIN 81 MG ECTAB PO SCH (09:06)
--- NOTE | 2022-11-17 09:45 | Cardiology Consultation ---
Date of Consultation November 17, 2022 Assessment & Plan (1) NSTEMI (non-ST elevated myocardial infarction): - Presentation suggests non-ST segment elevation myocardial infarction in the setting of recent viral respiratory illness. -Patient with known history of chronic apical inferior aneurysm with work-up per formed in 1996 including angiographically normal coronary arteries. -Echocardiogram performed this am with findings of chronic apical aneurysm, no mural thrombus, and normal LVEF of 55%, unchanged compared to 2020. -Pt with parainfluenza virus and ongoing cough. Question if patient has had an acute intracoronary plaque rupture in the setting of viral respiratory illness, or vasospasm is a possibility. -Patient is on chronic clopidogrel due to her history of a TIA. ASA has been added and she has been on an UF heparin infusion overnight. -At present, free of chest pain. -There is a focal reproducible pain above her left breast with palpation and a separate pain that radiated down her left shoulder and arm that was worse at the grocery store yesterday. -Continue ASA, clopidogrel, metoprolol, topical nitroglycerin, lovastatin 10 mg daily (LDL 74 mg /dl). -Proceed with cardiac catheterization today. Hold heparin infusion for cardiac catheterization. History of Present Illness Attending Physician: Camelia Andrew MD History of Present Illness Letty Scott is a 72 year old female seen in cardiology consultation per the request of SUE Lew for the evaluation of chest discomfort, non-ST segment elevation myocardial infarction. Patient's recent history dates back to 11/10/2022 when she was seen as an acute visit by family medicine with complaint of coughing, chest congestion, and chest tightness, with noted ongoing symptoms despite [id number] Mucinex therapy. She was placed on a 5-day course of azithromycin and prednisone. Yesterday 11/16/2022 she presented to [facility] with a new symptom of waxing and waning chest discomfort that to some degree was worse with deep inspiration. An EKG was performed without acute repolarization changes. She was referred for stat laboratory studies including a D-dimer and a cardiac troponin and the cardiac troponin was elevated at 1700, prompting presentation to the emergency department. The high-sensitivity troponin I was trended in the meantime with measurements of 1700, 2287, 3382, and 4735 PG per mL respectively. D-dimer screen was within normal limits. EKG performed 11/16/2022 at 1840, interpret independently revealed sinus rhythm at 94 bpm, poor R wave progression noted suggestive of age-indeterminate anterior lateral infarct pattern, without significant ST-T wave changes. A repeat tracing was performed this morning at 618 once again revealing age- indeterminate anterolateral infarct pattern, which has been chronic dating back to 2013, age-indeterminate inferior infarct pattern chronic dating back to 2002. No acute [address]-T wave changes. Chest x-ray was without acute cardiopulmonary abnormality. CT angiogram revealed no pulmonary embolism, no thoracic aortic aneurysm or dissection. No significant pericardial effusion. COVID-19 screen was negative. Respiratory viral panel was positive for parainfluenza 4 PCR test. Per review of her outpatient chart, her most recent outpatient cardiology follow-up visit had been in July 2022 at which time the patient described occasional chest discomfort episodes. An echocardiogram and nuclear stress test were ordered on 07/08/2022 but are yet to be completed. Outpatient cardiology problem list: 1.Discrete focal inferoapical aneurysm with normal coronaries by cardiac catheterization in 1996. 2.Hypertension. 3.History of intermittent ventricular ectopy. 4.Hyperlipidemia. 5.Obstructive sleep apnea, treated with CPAP. 6.History of TIA, April 2018, prescribed Plavix 7.Type 2 diabetes mellitus 8.Generalized anxiety disorder 9.Fatty liver 10.Hypothyroidism 11. Venous insufficiency for which patient underwent right remnant greater saphenous vein, greater saphenous vein tributary ultrasound-guided foam sclerotherapy on 05/21/2021 and on 08/06/2021. Stable findings noted at the most recent vascular medicine follow-up visit 10/16/2021 Allergies Allergy/AdvReac Type Severity Reaction Status Date / Time atorvastatin AdvReac Intermediate LEG CRAMPS Verified 11/16/22 19:33 levofloxacin AdvReac Intermediate "GOOFY Verified 11/16/22 19:33 FEELING", DRY MOUTH Home Medications Medication Instructions Recorded Confirmed Type fluticasone propionate 50 2 spray intranasal QAM 03/22/18 11/16/22 History mcg/actuation nasal spray,suspension lorazepam 0.5 mg tablet 0.5 mg PO TID PRN Anxiety 03/22/18 11/16/22 History losartan 25 mg tablet 25 mg PO QAM 03/22/18 11/16/22 History calcium carbonate 600 mg-vitamin 1 tab PO QPM 11/11/18 11/16/22 History D3 10 mcg (400 unit) tablet (Calcium 600 + D(3)) clopidogrel 75 mg tablet (Plavix) 75 mg PO QAM 11/11/18 11/16/22 History docusate sodium 100 mg capsule 100 mg PO QPM 11/11/18 11/16/22 History (Colace) lactobacillus comb no.10 20 20,000 mmu cells PO QAM 11/11/18 11/16/22 History billion cell capsule (Probiotic) loratadine 10 mg tablet 10 mg PO QAM PRN Allergy Symptoms 11/11/18 11/16/22 History vitamin B complex 1 tab PO QAM 11/11/18 11/16/22 History hydrochlorothiazide 25 mg tablet 12.5 mg PO Q OTHER DAY 03/27/21 11/16/22 History potassium chloride 10 mEq 10 meq PO Q OTHER DAY 03/27/21 11/16/22 History tablet,extended release cinnamon bark 500 mg capsule 500 mg PO DAILY 11/16/22 11/16/22 History (Cinnamon) levothyroxine 88 mcg tablet 88 mcg PO DAILY 11/16/22 11/16/22 History (Levoxyl) lovastatin 10 mg tablet 10 mg PO HS 11/16/22 11/16/22 History magnesium oxide 400 mg PO DAILY 11/16/22 11/16/22 History metformin 500 mg tablet,extended 500 mg PO BID 11/16/22 11/16/22 History release 24 hr metoprolol succinate 25 mg 12.5 mg PO DAILY 11/16/22 11/16/22 History tablet,extended release 24 hr metoprolol succinate 25 mg 25 mg PO HS 11/16/22 11/16/22 History tablet,extended release 24 hr multivitamin 1 tab PO QAM 11/16/22 11/16/22 History ondansetron 4 mg disintegrating 4 mg PO Q8H PRN Nausea 11/16/22 11/16/22 History tablet tramadol 50 mg tablet 50 mg PO Q8H PRN Pain 11/16/22 11/16/22 History Patient History Medical History Aneurysm Discrete apical aneurysm Chronic back pain DM type 2 (diabetes mellitus, type 2) History of left heart catheterization History of TIA (transient ischemic attack) HLD (hyperlipidemia) HTN (hypertension) Hypothyroidism Obesity RAMIREZ (obstructive sleep apnea) CPAP Osteoarthritis Surgical History H/O tubal ligation Status post laser ablation of incompetent vein Family History Father , 54 Lung cancer Mother , 83 T2DM (type 2 diabetes mellitus) Stroke Son Hypertension Daughter Hypertension Mother Family history of diabetes mellitus Social History Smoking Status: Never smoker Second Hand Exposure: No; Do You Dip or Chew Tobacco: No; Tobacco Cessation Education Requested by Patient: No Hx Alcohol Use: No Hx Substance Use: No Preferred Language: Lithuanian Communication Ability: Effective Emt I/85 Required: No Beliefs That Will Affect Care: None marital status: Current Living Situation: Spouse current occupational status: retired current occupation: Former [employer] employee Other Information That Helps Us Care for You: No Feels Safe at Home: Yes Safety Concerns: Feels Safe At This Time Assistive Devices: Denture - Upper and Glasses Review of Systems Review of Systems: All systems reviewed & are unremarkable except as noted in HPI & below Physical Exam Constitutional: WD/WN, vitals as above Respiratory: normal respiratory effort, lungs clear to auscultation Cardiovascular: RRR, no murmur, no edema Gastrointestinal (Abdomen): normal bowel sounds, soft, nontender, no hepatosplenomegaly Neurologic: PERRL, EOMI, accommodation nl, no face palsy, no dysarthria Results & Data Vital Signs (Past 12 Hours) Vital Signs Temp Pulse Pulse Resp BP Pulse Ox O2 Del Method 11/17/22 09:27 73 11/17/22 08:21 36.9 C 73 18 120/65 95 Room Air 11/17/22 02:06 68 23 95 11/17/22 03:48 36.5 C 76 16 130/82 94 CPAP 11/16/22 23:30 82 24 93 11/16/22 21:52 85 11/16/22 23:39 36.4 C L 67 20 127/79 94 Room Air FiO2 11/17/22 09:27 11/17/22 08:21 11/17/22 02:06 21 11/17/22 03:48 11/16/22 23:30 21 11/16/22 21:52 11/16/22 23:39 Laboratory Results Cardiac Enzymes 11/16/22 11/16/22 11/17/22 Range/Units 18:51 21:42 03:22 Troponin I High Sens 2287.0 H* D 3382.6 H* D 4735.8 H* D (0-14) pg/ml Coagulation 11/16/22 11/17/22 Range/Units 18:51 03:22 PT 10.5 (9.0-12.0) Seconds APTT 25.9 65.2 H* (21.0-31.0) Seconds Lipids 11/17/22 Range/Units 03:22 Triglycerides 163 H (0-150) mg/dl Cholesterol 147 (0-200) mg/dl HDL Cholesterol 40 mg/dl Cholesterol/HDL Ratio 3.7 (0-5) CBC 11/17/22 Range/Units 03:22 WBC 9.88 (4.8-10.8) K/ul RBC 4.77 (4.20-5.40) M/uL Hgb 13.5 (12.0-16.0) g/dl Hct 40.4 (37.0-47.0) % Plt Count 226 (130-400) K/uL Comprehensive Metabolic Panel 11/17/22 Range/Units 03:22 Sodium 139 (136-145) mmol/L Potassium 3.8 (3.5-5.1) mmol/L Chloride 104 (98-107) mmol/L Carbon Dioxide 28 (21-32) mmol/L BUN 13 (6-23) mg/dl Creatinine 0.61 (0.6-1.2) mg/dl Glucose 116 H (70-99(Fasting)) mg/dl Calcium 9.2 (8.6-10.3) mg/dl Diagnostic Findings EKG studies other diagnostic test as per HPI
[2022-11-17] MEDS: LOSARTAN POTASSIUM 25 MG TAB PO SCH (10:56)
--- NOTE | 2022-11-17 11:43 | Electrocardiogram Report ---
Test Reason : Blood Pressure : / mmHG Vent. Rate : 094 BPM Atrial Rate : 094 BPM P-R Int : 144 ms QRS Dur : 098 ms QT Int : 350 ms P-R-T Axes : 059 060 053 degrees QTc Int : 437 ms Normal sinus rhythm possble Anterolateral infarct (cited on or before 27-JAN-2014) Abnormal ECG When compared with ECG of 18-NOV-2018 14:54, No significant change was found Confirmed by Joseph Howard ([id number]) on 11/17/2022 11:43:24 AM Referred By: REFERRED SELF Confirmed By:Yunier Howard
--- NOTE | 2022-11-17 12:08 | Electrocardiogram Report ---
Test Reason : Blood Pressure : / mmHG Vent. Rate : 078 BPM Atrial Rate : 078 BPM P-R Int : 152 ms QRS Dur : 104 ms QT Int : 388 ms P-R-T Axes : 053 020 083 degrees QTc Int : 442 ms Normal sinus rhythm Low voltage QRS Inferior infarct (cited on or before 13-APR-2003) Possible Anterolateral infarct (cited on or before 27-JAN-2014) Abnormal ECG When compared with ECG of 16-NOV-2022 19:14, (unconfirmed) No significant change was found Confirmed by Joseph Howard ([id number]) on 11/17/2022 12:07:45 PM Referred By: REFERRED SELF Confirmed By:Yunier Howard
--- NOTE | 2022-11-17 12:09 | Electrocardiogram Report ---
Test Reason : Blood Pressure : / mmHG Vent. Rate : 063 BPM Atrial Rate : 063 BPM P-R Int : 162 ms QRS Dur : 102 ms QT Int : 394 ms P-R-T Axes : 036 051 108 degrees QTc Int : 403 ms Normal sinus rhythm Possible Inferior infarct (cited on or before 13-APR-2003) Possible Anterolateral infarct (cited on or before 27-JAN-2014) Abnormal ECG When compared with ECG of 17-NOV-2022 06:18, (unconfirmed) No significant change was found Confirmed by Joseph Howard ([id number]) on 11/17/2022 12:09:40 PM Referred By: REFERRED SELF Confirmed By:Yunier Howard
[2022-11-17] MEDS ORDERED: MIDAZOLAM HCL 1 MG/ML 2ML VIAL ONE (12:39)
[2022-11-17] MEDS ORDERED: niCARdipine HCL INJ 2.5 MG/ML 10 ML AMP ONE (12:39)
[2022-11-17] MEDS ORDERED: fentaNYL citrate PF 100 MCG/2 ML VIAL ONE (12:39)
[2022-11-17] MEDS ORDERED: HEPARIN (PORCINE) 1000 UNIT/ML 10 ML (CATH LAB USE ONLY) ONE (12:39)
[2022-11-17] MEDS ORDERED: NITROGLYCERIN/D5W 100MCG/ML 20ML SYR ONE (12:40)
--- NOTE | 2022-11-17 13:24 | Pre Anesthesia Assessment ---
Date of Service November 17, 2022 Pre Sedation Assessment Vital Signs Temp Pulse Pulse Resp BP BP Pulse Ox 11/17/22 13:00 78 18 128/83 95 11/17/22 11:38 37.3 C 76 18 134/73 95 11/17/22 09:28 36.7 C 88 18 124/78 95 11/17/22 07:30 11/17/22 09:27 73 11/17/22 08:21 36.9 C 73 18 120/65 95 11/17/22 02:06 68 23 95 11/17/22 03:48 36.5 C 76 16 130/82 94 11/16/22 23:30 82 24 93 11/16/22 21:00 11/16/22 21:52 85 11/16/22 23:39 36.4 C L 67 20 127/79 94 11/16/22 21:10 36.6 C 86 18 156/88 H 94 11/16/22 21:10 36.6 C 86 18 156/88 H 94 11/16/22 20:32 140/84 11/16/22 20:32 89 21 96 11/16/22 20:31 81 18 96 11/16/22 19:30 85 23 98 11/16/22 19:30 156/77 H 11/16/22 19:00 86 20 97 11/16/22 19:00 154/70 H 11/16/22 18:48 96 H 11/16/22 18:49 157/76 H 11/16/22 18:49 88 21 96 11/16/22 18:47 107 H 24 11/16/22 18:32 36.8 C 92 H 20 169/77 H 95 O2 Del Method FiO2 11/17/22 13:00 Room Air 11/17/22 11:38 Room Air 11/17/22 09:28 Room Air 11/17/22 07:30 Room Air 11/17/22 09:27 11/17/22 08:21 Room Air 11/17/22 02:06 21 11/17/22 03:48 CPAP 11/16/22 23:30 21 11/16/22 21:00 Room Air 11/16/22 21:52 11/16/22 23:39 Room Air 11/16/22 21:10 Room Air 11/16/22 21:10 Room Air 11/16/22 20:32 06/12/23 20:32 Room Air 11/16/22 20:31 11/16/22 19:30 11/16/22 19:30 11/16/22 19:00 11/16/22 19:00 11/16/22 18:48 11/16/22 18:49 11/16/22 18:49 Room Air 11/16/22 18:47 11/16/22 18:32 Room Air Cardiovascular RRR, no murmur, no edema Respiratory normal respiratory effort, lungs clear to auscultation Pre-Sedation Airway Assessment Smoking Status: Never smoker Hx Sleep Apnea: No Short, Thick Neck: No Thyromental Distance: > or= 3.5 Finger Breadths Oral Cavity: + WNL Mallampati Class: III ASA: ASA3 NPO Status Date of Last Intake of Fluids: 11/17/22 Time of Last Intake of Fluids: 08:00 Date of Last Intake of Solid Food: 11/16/22 Time of Last Intake of Solid Foods: 17:00 Notes The planned sedation has been discussed with the patient. Informed Consent was obtained. I have identified the patient, determined the appropriateness of sedation and have assessed the patient immediately prior to the procedure. All medicine(s) and interventions are by my order.
--- NOTE | 2022-11-17 13:31 | Hospitalist Progress Note ---
Date of Service November 17, 2022 Assessment & Plan (1) NSTEMI (non-ST elevated myocardial infarction): (2) Elevated troponin: (3) Chest pain: Plan: Patient presented by referral of [facility] after she was evaluated there for ongoing bronchitis symptoms and left-sided chest pain. Patient was referred for labs that showed troponin 1700. Remote history of cardiac cath in 1996 --reportedly normal coronary arteries, full report not available Repeat troponin 2287. CTA chest negative for dissection and pulmonary embolism. Patient on Plavix for history of TIA Aspirin added this admission. Continue DAPT Continue heparin drip Discussed with Lehr Operator. 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 TTE today noted mod conc LVH, apical aneurysm, EF 55% GI DD (6) DM type 2 (diabetes mellitus, type 2): Plan: Hgb A1c 5.7 06/2022 Hold metformin and utilize NovoLog per protocol while hospitalized (7) History of TIA (transient ischemic attack): Plan: Continue Plavix (8) HTN (hypertension): Plan: Continue metoprolol, losartan Holding HCTZ for now (9) RAMIREZ (obstructive sleep apnea): Plan: CPAP as per home setting DVT PROPHYLAXIS On IV heparin I spent a total of 50 minutes coordinating, documenting and providing care for this patient excluding time spent in performance of separately billed services Admission and Anticipated Discharge Date Admission Date: November 16, 2022 Subjective Patient seen and examined this morning Reports she was having left sided chest pressure radiating to left shoulder and arm. Denied any shortness of breath, nausea, diaphoresis. Reports she has some cough and congestion for sometime now. Denied fever, chills, vomiting, abd pain, diarrhea, dysuria, freq, urgency Physical Exam Constitutional: + well hydrated; no acute distress Eyes: PERRL, conjunctivae normal, anicteric sclerae ENMT: external ear and nose normal, oropharynx normal Respiratory: normal respiratory effort, lungs clear to auscultation Cardiovascular: RRR, no murmur, no edema Gastrointestinal (Abdomen): normal bowel sounds, soft, nontender, no hepatosplenomegaly Musculoskeletal: no cyanosis or clubbing, extremities motor strength 5/5 Neurologic: PERRL, EOMI, accommodation nl, no face palsy, no dysarthria Psychiatric: A+Ox3, euthymic affect Results & Data Results & Data Vital Signs (Past 12 Hours) Vital Signs Temp Pulse Pulse Resp BP Pulse Ox O2 Del Method 11/17/22 13:00 78 18 128/83 95 Room Air 11/17/22 11:38 37.3 C 76 18 134/73 95 Room Air 11/17/22 09:28 36.7 C 88 18 124/78 95 Room Air 11/17/22 07:30 Room Air 11/17/22 09:27 73 11/17/22 08:21 36.9 C 73 18 120/65 95 Room Air 11/17/22 02:06 68 23 95 11/17/22 03:48 36.5 C 76 16 130/82 94 CPAP FiO2 11/17/22 13:00 11/17/22 11:38 11/17/22 09:28 11/17/22 07:30 11/17/22 09:27 11/17/22 08:21 11/17/22 02:06 21 11/17/22 03:48 Laboratory Results Abnormal lab results 11/16/22 11/16/22 11/16/22 Range/Units 18:51 20:30 21:42 MPV (9.4-12.4) fL APTT (21.0-31.0) Seconds BUN/Creatinine Ratio (10-20) Glucose (70-99(Fasting)) mg/dl POC Glucose (70-99) mg/dl Hemoglobin A1c (4.5-5.6) % Troponin I High Sens 2287.0 H* D 3382.6 H* D (0-14) pg/ml Triglycerides (0-150) mg/dl VLDL Cholesterol, Calc (0-30) mg/dl Parainfluenza 4 (PCR) DETECTED A* (NotDetected) 11/17/22 11/17/22 11/17/22 Range/Units 03:22 03:22 03:22 MPV 9.2 L (9.4-12.4) fL APTT (21.0-31.0) Seconds BUN/Creatinine Ratio 21.3 H (10-20) Glucose 116 H (70-99(Fasting)) mg/dl POC Glucose (70-99) mg/dl Hemoglobin A1c (4.5-5.6) % Troponin I High Sens 4735.8 H* D (0-14) pg/ml Triglycerides 163 H (0-150) mg/dl VLDL Cholesterol, Calc 33 H (0-30) mg/dl Parainfluenza 4 (PCR) (NotDetected) 11/17/22 11/17/22 11/17/22 Range/Units 03:22 03:22 06:10 MPV (9.4-12.4) fL APTT 65.2 H* (21.0-31.0) Seconds BUN/Creatinine Ratio (10-20) Glucose (70-99(Fasting)) mg/dl POC Glucose 116 H (70-99) mg/dl Hemoglobin A1c 5.7 H (4.5-5.6) % Troponin I High Sens (0-14) pg/ml Triglycerides (0-150) mg/dl VLDL Cholesterol, Calc (0-30) mg/dl Parainfluenza 4 (PCR) (NotDetected) 11/17/22 Range/Units 12:00 MPV (9.4-12.4) fL APTT (21.0-31.0) Seconds BUN/Creatinine Ratio (10-20) Glucose (70-99(Fasting)) mg/dl POC Glucose 110 H (70-99) mg/dl Hemoglobin A1c (4.5-5.6) % Troponin I High Sens (0-14) pg/ml Triglycerides (0-150) mg/dl VLDL Cholesterol, Calc (0-30) mg/dl Parainfluenza 4 (PCR) (NotDetected) (3) Chest pain Chest pain type: precordial pain Qualified Code(s): R07.2 - Precordial pain (8) HTN (hypertension) Hypertension type: unspecified Qualified Code(s): I10 - Essential (primary) hypertension
--- NOTE | 2022-11-17 14:01 | Post Anesthesia Assessment ---
Date of Service November 17, 2022 Post Sedation Assessment Vital Signs Temp Pulse Pulse Resp BP BP Pulse Ox 11/17/22 13:00 78 18 128/83 95 11/17/22 11:38 37.3 C 76 18 134/73 95 11/17/22 09:28 36.7 C 88 18 124/78 95 11/17/22 07:30 11/17/22 09:27 73 11/17/22 08:21 36.9 C 73 18 120/65 95 11/17/22 02:06 68 23 95 11/17/22 03:48 36.5 C 76 16 130/82 94 11/16/22 23:30 82 24 93 11/16/22 21:00 11/16/22 21:52 85 11/16/22 23:39 36.4 C L 67 20 127/79 94 11/16/22 21:10 36.6 C 86 18 156/88 H 94 11/16/22 21:10 36.6 C 86 18 156/88 H 94 11/16/22 20:32 140/84 11/16/22 20:32 89 21 96 11/16/22 20:31 81 18 96 11/16/22 19:30 85 23 98 11/16/22 19:30 156/77 H 11/16/22 19:00 86 20 97 11/16/22 19:00 154/70 H 11/16/22 18:48 96 H 11/16/22 18:49 157/76 H 11/16/22 18:49 88 21 96 11/16/22 18:47 107 H 24 11/16/22 18:32 36.8 C 92 H 20 169/77 H 95 O2 Del Method FiO2 11/17/22 13:00 Room Air 11/17/22 11:38 Room Air 11/17/22 09:28 Room Air 11/17/22 07:30 Room Air 11/17/22 09:27 11/17/22 08:21 Room Air 11/17/22 02:06 21 11/17/22 03:48 CPAP 11/16/22 23:30 21 11/16/22 21:00 Room Air 11/16/22 21:52 11/16/22 23:39 Room Air 11/16/22 21:10 Room Air 11/16/22 21:10 Room Air 11/16/22 20:32 06/12/23 20:32 Room Air 11/16/22 20:31 11/16/22 19:30 11/16/22 19:30 11/16/22 19:00 11/16/22 19:00 11/16/22 18:48 11/16/22 18:49 11/16/22 18:49 Room Air 11/16/22 18:47 11/16/22 18:32 Room Air Recovery Score Activity: Moves 4 extremities Respiration: Deep Breath/Cough Circulation: +/-20% PreAnes Value Consciousness: Fully Awake Oxygen Saturation: > 92% On Room Air Discharge Sedation Level of Care: Fast Track Phase II Post Sedation Plan On clinical assessment, the patient appears to have tolerated the sedation without complications. Patient is recovering as anticipated. Patient will continue to be monitored by nursing and may be discharged when sedation discharge criteria are met per below protocol. Upon Completions of procedure up to 15 minutes continue every 5 minute vital signs and the P.A.R. score; then discharge to a Phase I or Fast Track to Phase II per the following guidelines: * Discharge Patient to appropriate Phase II area if PAR is 8 or greater or return to pre- procedure baseline. The post - procedure orders will be as directed. * If PAR score is less than 8 or not return to pre-procedure baseline then patient will follow Phase I monitoring till PAR is reached for Phase II. The Phase I may be done in procedure room or may call to secure a Phase I area. * If naloxone or flumazenil are used for reversal, hold in Phase I for continued monitoring from when last reversal dose was given for a minimum of 60 minutes or longer pending the nurse and/or physician discretion of patient condition before discharge to Phase II. Please call the Sedation Physician to re-evaluate and complete post-note for discharge to Phase II area. Do NOT discharge from procedure sedation or Phase 1 until post- sedation evaluation note is complete by procedure /sedation MD Sedation Discharge Instructions to be given to the patient at discharge to home. [facility] Procedure Codes (Charges) Indication for Procedure Indication for procedure: NSTEMI Sedation/Anesthesia Procedure 1: Sedation/Anesthesia: 69602 Mod Sedation by the same physician;Init15 Min Child Age 5 & Up (total 14 min. Start 1339, end 1353)
--- NOTE | 2022-11-17 14:15 | Cardiac Catheterization ---
[facility] Data: Design Leader Cardiac Status Clinical evaluation leading to the procedure CAD Presenation: Non STEMI Anginal Classification: CCS III Heart Failure: No Cardiogenic Shock within 24 Hours: No Cardiac Arrest within 24 Hours: No Imaging Studies Past 6 Months: Yes STEMI OR Non-STEMI Symptom Onset Date: 11/16/22 Coronary Anatomy Dominant: Right Left Main (% Stenosis): Normal LAD (% Stenosis): Normal D1 (% Stenosis): Normal D2 (% Stenosis): Normal D3 (% Stenosis): Normal Circumflex (% Stenosis): Normal OM1 (% Stenosis): Normal OM2 (% Stenosis): Normal L PL1 (% Stenosis): Normal RCA (% Stenosis): Normal R PDA (% Stenosis): Normal R PL1 (% Stenosis): Normal Diagnostic Physicians Name: Gaston Perkins MD, PhD Closure Device Percutaneous Entry Location: Radial Closure Device: Radial Band Recommendations: Medical Therapy and/or Counseling Cardiac Cath Procedure Full Procedure Date November 17, 2022 Pre-Procedure Diagnosis Pre-Procedure Diagnosis: Non STEMI AUC Score AUC Score: 07 Post-Procedure Diagnosis Post-Procedure Diagnosis: Normal Coronary Arteries Procedure(s) Performed Procedure(s) Performed: Coronary Angiography Bowling Alley Operator Gaston Perkins MD, PhD Estimated Blood Loss Estimated Blood Loss: <5ml Medication(s) Medication(s): Fentanyl, Heparin, Lidocaine 1%, Nicardipine, Nitroglycerin and Versed Summary of Findings Brief description: Patient was brought to the cardiac catheterization suite where she was shaved and prepped in a sterile fashion. Sedated using IV Versed and fentanyl. Soft tissues of the right wrist were anesthetized using 2 mL of 1% Xylocaine. The right radial artery was accessed with a modified Seldinger technique and a 6 [place] radial artery glide sheath was placed. All catheters were advanced and exchanged over a 0.035 J-tip wire. Patient was provided anticoagulation with IV heparin and antispasmodics including nicardipine and nitroglycerin. Left coronary angiography in orthogonal views utilizing a 5 [place] 4 diagnostic catheter. Right coronary angiography in orthogonal views utilizing a 5 [place]is[place] 4 diagnostic catheter. All diagnostic catheters were removed. Radial artery sheath was removed. Hemostasis was obtained using the TR band. Patient was hemodynamically stable and asymptomatic. She was returned to the recovery area. This ended the case. Coronary angiography findings: LMT: Large-caliber vessel which bifurcates into the LAD and left circumflex. There is no angiographically evident disease. LAD: Large caliber and transapical. First 2 branches are small diagonals followed immediately by a large caliber branching third diagonal. There is also a large septal trunk at this level. The LAD after these branches takes an intramyocardial course and then returns to the epicardial surface where it remains large and is seen to wrap the apex and bifurcate into the 2 long branches. There is no angiographically evident disease in the LAD or its branches. LCx: Large caliber and nondominant vessel. Gives a medium caliber high arising first obtuse marginal as it travels in the AV groove. Then, it provides a very large caliber multi branching OM 2 and the AV groove distal circumflex becomes medium in caliber. This then continues distally terminating in a small caliber posterolateral branch. There is no angiographically evident disease in the circumflex or its branches. RCA: Large caliber and dominant vessel with modest tortuosity which bifurcates distally into a large caliber branching PDA and a medium to large caliber multi branching posterolateral. The RCA and its branches have no angiographically significant disease. Summary: 1. Moderately tortuous coronaries. 2. No angiographically significant coronary disease. Hemodynamics Rest Ao:: 138/82 mmHg Final Ao: 120/77 mmHg LV: Not performed Recommendations Recommendations: Medical Therapy and/or Counseling Radiation Exposure (mGy) 464 mGy, fluoroscopy time 2.1 minutes Contrast (mls) 70 mL Anesthesia 1 mg IV Versed, 25 mcg IV fentanyl. Start time 1339, end time 1353 Procedural Complication(s) None Disposition Recovery Room\PACU I attest to the content of the Intraoperative Record and any orders documented therein. Any exceptions are noted below. [facility] Card Cath Procedure Codes Cardiac Catheterization Procedure 1: Cardiovascular Cath Procedures: 29778 Coronaries Moderate Sedation Procedure 1: Sedation/Anesthesia: 21043 Mod Sedation by the same physician;Init15 Min Child Age 5 & Up (total 14 min , start 1339 end 1353) PG Care Time/CCT Total # of Minutes Spent Total Time Spent with Patient: Total time spent is greater than 50% in coordination of care (as documented) at patient's floor/unit and/or counseling patient:
--- NOTE | 2022-11-17 16:07 | Communication Note ---
Date of Service: November 17, 2022 Catheterization films reviewed, case discussed with Dr. Perkins of interventional cardiology. Coronary angiography without culprit. At this time we will discontinue heparin. Continue aspirin and clopidogrel. Continue beta-jung and lovastatin. Differential diagnosis includes vasospasm, or myocarditis, or supply/demand mismatch in the setting of ongoing viral respiratory illness. Is difficult to distinguish angina compared to the coexistent musculoskeletal chest wall pain that is also present. Echocardiogram revealed stable findings. No clinical congestive heart failure. If this was a myocarditis, the treatment would not change compared to what is already being performed. Topical nitroglycerin has been discontinued. We will plan on transitioning to oral isosorbide mononitrate tomorrow for treatment of possible vasospasm or micro vascular dysfunction.
[2022-11-17] MEDS: LOVASTATIN 20 MG TAB PO SCH (20:15)
[2022-11-17] MEDS: DOCUSATE SODIUM 100 MG CAP PO SCH (20:15)
[2022-11-18] MEDS: LEVOTHYROXINE SODIUM 88 MCG TABLET PO SCH (05:36)
[2022-11-18 07:25] LABS: Hematocrit (blood only) 43.5 % (37.0-47.0); Hemoglobin 14.2 g/dl (12.0-16.0); Mean Corpuscular Hemoglobin 28.3 pg (25.0-34.0); Mean Corpuscular Hgb Conc 32.6 g/dL (32.0-36.0); Mean Corpuscular Volume 86.7 fL (80.0-100.0); Mean Platelet Volume 9.1 fL (9.4-12.4); Platelet Count 242 K/uL (130-400); Red Blood Count 5.02 M/uL (4.20-5.40); White Blood Count 7.18 K/ul (4.8-10.8)
[2022-11-18 07:46] LABS: Alanine Aminotransferase 15 U/L (7-52); Albumin Globulin Ratio 1.5 (0.9-2); Albumin Level 4.1 gm/dl (3.4-5.0); Alkaline Phosphatase 42 U/L (34-104); Anion Gap 4 (3-11); Bilirubin,Total 0.6 mg/dl (0.2-1.0); Blood Urea Nitrogen 13 mg/dl (6-23); Calcium 9.3 mg/dl (8.6-10.3); Carbon Dioxide 31 mmol/L (21-32); Chloride 102 mmol/L (98-107); Creatinine Clr Calc Pharmacy 86.3 ml/min; Est GFR (African American) 106.1 ml/min; Est GFR (Non-African American) 91.6 ml/min; Globulin 2.8 gm/dl (2.5-4.0); Glucose 101 mg/dl (70-99(Fasting)); Magnesium 2.3 mg/dl (1.7-2.4); Phosphorus 3.2 mg/dl (2.5-4.9); Sodium 137 mmol/L (136-145); Total Protein 6.9 gm/dl (6.0-8.3)
[2022-11-18] MEDS: LOSARTAN POTASSIUM 25 MG TAB PO SCH (07:57)
[2022-11-18] MEDS: ASPIRIN 81 MG ECTAB PO SCH (07:57)
[2022-11-18] MEDS: ISOSORBIDE MONO EXTENDED REL 30 MG TABCR PO SCH (07:57)
[2022-11-18] MEDS: CLOPIDOGREL BISULFATE 75 MG TAB PO SCH (07:57)
[2022-11-18] MEDS: METOPROLOL TARTRATE 25 MG TAB PO SCH ×2 (07:58→20:47)
[2022-11-18] MEDS: MAGNESIUM OXIDE 400 MG TAB PO SCH (07:58)
[2022-11-18] MEDS: INSULIN ASPART PER UNIT CHARGE SC SCH ×4 (08:03→20:45)
[2022-11-18 08:52] LABS: Potassium 4.1 mmol/L (3.5-5.1)
[2022-11-18] MEDS: ACETAMINOPHEN 325 MG TAB PO PRN ×2 (11:48→20:50)
--- NOTE | 2022-11-18 12:34 | Electrocardiogram Report ---
Test Reason : Blood Pressure : / mmHG Vent. Rate : 070 BPM Atrial Rate : 070 BPM P-R Int : 152 ms QRS Dur : 098 ms QT Int : 382 ms P-R-T Axes : 059 044 121 degrees QTc Int : 412 ms Sinus rhythm with sinus arrhythmia with occasional Premature ventricular complexes Low voltage QRS Inferior infarct (cited on or before 13-APR-2003) Possible Anterolateral infarct (cited on or before 27-JAN-2014) Abnormal ECG When compared with ECG of 17-NOV-2022 09:39, Premature ventricular complexes are now Present Nonspecific T wave abnormality, worse in Anterior leads Confirmed by Joseph Howard ([id number]) on 11/18/2022 12:34:23 PM Referred By: REFERRED SELF Confirmed By:Yunier Howard
--- NOTE | 2022-11-18 13:35 | Hospitalist Progress Note ---
Date of Service November 18, 2022 Assessment & Plan (1) Chest pain: Plan: Patient presented by referral of [facility] after she was evaluated there for ongoing bronchitis symptoms and left-sided chest pain. Remote history of cardiac cath in 1996 --reportedly normal coronary arteries, full report not available. Patient was referred for labs that showed troponin 1700->2287. CTA chest negative for dissection and pulmonary embolism. Echo with stable findings Seen by cardiology and underwent cardiac cath yesterday which did not show any culprit lesion Found to have Parainfluenza 3 and also has left costochondral tenderness Suspected her CP and troponin elevation is from myocarditis vs vasospasm vs supply/demand mismatch with ongoing viral illness vs costochondritis Per cardio, continue aspirin/plavix, betablocker, statin Plan to transition to oral imdur per cardio (2) Bronchitis: Plan: Patient completed course of azithromycin and prednisone the day before presentation No evidence of pneumonia on CT chest COVID-19 testing negative Resp PCR showed parainfluenza Continue supportive therapies (3) Aneurysm: Plan: History of small apical aneurysm Stable on echo 06/2020 TTE noted mod conc LVH, apical aneurysm, EF 55% GI DD (4) DM type 2 (diabetes mellitus, type 2): Plan: Hgb A1c 5.7 06/2022 Hold metformin and utilize NovoLog per protocol while hospitalized (5) History of TIA (transient ischemic attack): Plan: Continue Plavix (6) HTN (hypertension): Plan: Continue metoprolol, losartan Holding HCTZ for now (7) RAMIREZ (obstructive sleep apnea): Plan: CPAP as per home setting Plan DVT ppx- sc lovenox Dispo- Anticipate discharge in 1-2 days if remains stable Admission and Anticipated Discharge Date Admission Date: November 16, 2022 Subjective Patient was seen and examined at bedside. Still has left-sided chest pain but much improved from admission. Still has some cough. No fever, chills, nausea or vomiting. Review of Systems Review of Systems: All systems reviewed & are unremarkable except as noted in Subjective Physical Exam Physical Exam: General: Lying comfortably in bed, not in distress, on room air HEENT: EOMI, DOROTHY, MMM Chest: Left costochondral tenderness on palpation, clear breath sounds bilaterally, no wheezes or crackles CVS: Regular rate and rhythm, normal heart sounds, no murmur Abdomen: Soft, non tender, not distended, normal bowel sounds Neuro: Awake, alert, oriented, conversing well, non focal Extremities: No cyanosis, clubbing or edema Results & Data Results & Data Vital Signs (Past 12 Hours) Vital Signs Temp Pulse Pulse Resp BP Pulse Ox O2 Del Method 11/18/22 11:48 36.6 C 73 14 112/64 95 Room Air 11/18/22 07:53 36.6 C 81 16 143/78 H 95 Room Air 11/18/22 02:58 36.3 C L 63 18 117/78 95 CPAP 11/18/22 02:33 73 14 93 FiO2 11/18/22 11:48 11/18/22 07:53 11/18/22 02:58 11/18/22 02:33 21 Laboratory Results Short CBC 11/18/22 Range/Units 07:05 WBC 7.18 (4.8-10.8) K/ul Hgb 14.2 (12.0-16.0) g/dl Hct 43.5 (37.0-47.0) % Plt Count 242 (130-400) K/uL BMP 11/18/22 11/18/22 07:05 08:00 Sodium 137 Potassium TNP 4.1 Chloride 102 Carbon Dioxide 31 BUN 13 Creatinine 0.59 L Glucose 101 H Calcium 9.3 Liver Function 11/18/22 11/18/22 Range/Units 07:05 08:00 Total Bilirubin 0.6 (0.2-1.0) mg/dl AST TNP 26 ALT 15 (7-52) U/L Alkaline Phosphatase 42 (34-104) U/L Albumin 4.1 (3.4-5.0) gm/dl Medications Administered Current Inpatient Medications Acetaminophen (Acetaminophen 325 Mg Tab) 650 mg PO Q4H PRN PRN Reason: Pain or Fever Stop: 12/16/22 21:09 Last Admin: 11/18/22 11:48 Dose: 650 mg Aspirin (Aspirin 81 Mg Ectab) 81 mg PO DAILY [facility] Stop: 12/17/22 08:59 Last Admin: 11/18/22 07:57 Dose: 81 mg Clopidogrel Bisulfate (Clopidogrel Bisulfate 75 Mg Tab) 75 mg PO QAM SHAHAB Stop: 12/17/22 08:59 Last Admin: 11/18/22 07:57 Dose: 75 mg Dextrose (Dextrose 50% 50 Ml Syringe) 25 - 50 ml IV UD PRN; Protocol PRN Reason: Hypoglycemia Protocol Stop: 12/16/22 21:09 Docusate Sodium (Docusate Sodium 100 Mg Cap) 100 mg PO QPM SHAHAB Stop: 12/16/22 21:09 Last Admin: 11/17/22 20:15 Dose: Not Given Glucagon (Glucagon For Inj 1 Mg Vial) 1 mg SQ UD PRN; Protocol PRN Reason: Hypoglycemia Protocol Stop: 12/16/22 21:09 Glucose (Glucose 10 Tab/Tube) 4 - 8 tab PO UD PRN; Protocol PRN Reason: Hypoglycemia Treatment Stop: 12/16/22 21:09 Glucose (Glucose 40% Gel 15 Gm Tube) 15 - 30 gm PO UD PRN; Protocol PRN Reason: Hypoglycemia Protocol Stop: 12/16/22 21:09 Insulin Aspart (Insulin Aspart Per Unit Charge) 0 units SC ACHS SHAHAB Stop: 12/17/22 16:29 Last Admin: 11/18/22 11:49 Dose: Not Given Isosorbide Mononitrate (Isosorbide [place] Extended Rel 30 Mg Tabcr) 30 mg PO QAM SHAHAB Stop: 12/18/22 08:59 Last Admin: 11/18/22 07:57 Dose: 30 mg Levothyroxine Sodium (Levothyroxine Sodium 88 Mcg Tablet) 88 mcg PO DAILYBB SHAHAB Stop: 12/17/22 06:29 Last Admin: 11/18/22 05:36 Dose: 88 mcg Lorazepam (Lorazepam 0.5 Mg Tab) 0.5 mg PO TID PRN PRN Reason: Anxiety Stop: 12/16/22 21:09 Losartan Potassium (Losartan Potassium 25 Mg Tab) 25 mg PO QAM SHAHAB Stop: 12/17/22 08:59 Last Admin: 11/18/22 07:57 Dose: 25 mg Lovastatin (Lovastatin 20 Mg Tab) 10 mg PO HS SHAHAB Stop: 12/16/22 21:09 Last Admin: 11/17/22 20:15 Dose: 10 mg Magnesium Oxide (Magnesium Oxide 400 Mg Tab) 400 mg PO DAILY SHAHAB Stop: 12/17/22 08:59 Last Admin: 11/18/22 07:58 Dose: 400 mg Metoprolol Tartrate (Metoprolol Tartrate 25 Mg Tab) 25 mg PO BID SHAHAB Stop: 12/17/22 08:59 Last Admin: 11/18/22 07:58 Dose: 25 mg Miscellaneous (Carbohydrates For Hypoglycemia ) 15 - 30 gm PO UD PRN PRN Reason: Hypoglycemia Protocol Stop: 12/16/22 21:09 (1) Chest pain Chest pain type: precordial pain Qualified Code(s): R07.2 - Precordial pain (6) HTN (hypertension) Hypertension type: unspecified Qualified Code(s): I10 - Essential (primary) hypertension
--- NOTE | 2022-11-18 14:43 | Cardiology Progress Note ---
Date of Service November 18, 2022 Assessment & Plan (1) NSTEMI (non-ST elevated myocardial infarction): Plan: - (2) Bronchitis: (3) Parainfluenza infection: Plan: - Patient with non-STEMI in the setting of bronchitis episode, parainfluenza virus. Echocardiogram revealing chronic left apical aneurysm with normal wall motion otherwise, preserved ejection fraction. Cardiac catheterization revealed angiographically normal coronary arteries on 11/17/2022. -Patient started on isosorbide mononitrate for possible coronary vasospasm. Notes mild subjective headache at the time of initial assessment this morning which may be related to the Imdur if she does not tolerate this, will consider transitioning her to amlodipine. -Cardiac catheterization does not suggest coronary artery embolic phenomenon. Other alternative diagnoses include myocarditis. Patient hemodynamically stable. -Elevated troponin may have been due to myocardial demand in setting of significant viral illness even with normal coronaries. -Would consider placing patient on another course of corticosteroids for bronchitis. Antibiotics likely not indicated. Continue metoprolol, chronic lovastatin therapy, losartan, aspirin added to her chronic clopidogrel given non-STEMI. DVT prophylaxis: Subcutaneous Lovenox. Admission and Anticipated Discharge Date Admission Date: November 16, 2022 Subjective Patient seen in cardiology follow-up. Overall, feeling improved. Still has cough, respiratory and sinus congestion, but her overall aches and pains in her chest, shoulder, and improved. Telemetry reveals sinus rhythm in the 60s. Pulse oximetry 95% on room air. Physical Exam Constitutional: WD/WN, vitals as above Respiratory: normal respiratory effort, lungs clear to auscultation Cardiovascular: RRR, no murmur, no edema Gastrointestinal (Abdomen): normal bowel sounds, soft, nontender, no hepatosplenomegaly Neurologic: PERRL, EOMI, accommodation nl, no face palsy, no dysarthria Results & Data Vital Signs (Past 12 Hours) Vital Signs Temp Pulse Resp BP Pulse Ox O2 Del Method 11/18/22 11:48 36.6 C 73 14 112/64 95 Room Air 11/18/22 07:53 36.6 C 81 16 143/78 H 95 Room Air 11/18/22 02:58 36.3 C L 63 18 117/78 95 CPAP Laboratory Results Cardiac Enzymes 11/18/22 11/18/22 Range/Units 07:05 08:00 AST TNP 26 CBC 11/18/22 Range/Units 07:05 WBC 7.18 (4.8-10.8) K/ul RBC 5.02 (4.20-5.40) M/uL Hgb 14.2 (12.0-16.0) g/dl Hct 43.5 (37.0-47.0) % Plt Count 242 (130-400) K/uL Comprehensive Metabolic Panel 11/18/22 11/18/22 Range/Units 07:05 08:00 Sodium 137 (136-145) mmol/L Potassium TNP 4.1 Chloride 102 (98-107) mmol/L Carbon Dioxide 31 (21-32) mmol/L BUN 13 (6-23) mg/dl Creatinine 0.59 L (0.6-1.2) mg/dl Glucose 101 H (70-99(Fasting)) mg/dl Calcium 9.3 (8.6-10.3) mg/dl AST TNP 26 ALT 15 (7-52) U/L Alkaline Phosphatase 42 (34-104) U/L Total Protein 6.9 (6.0-8.3) gm/dl Albumin 4.1 (3.4-5.0) gm/dl Intake and Output 11/17/22 11/18/22 11/18/22 22:59 06:59 14:59 Intake Total 725 / 985.683 120 / 985.683 360 / 360 Output Total Balance 724 / 984.683 120 / 984.683 360 / 360 Intake: IV 0 / 140.683 Heparin Sodium/Dextrose 25,000 0 / 140.683 units In 500 ml @ 0 UNITS/HR IV .Q0M [facility] Rx#:[id number] Oral 725 / 845 120 / 845 360 / 360 Output: # Bowel Movements Other: # Unmeasured Voids 1 Weight 83.5 kg Weight Measurement Method Built in [facility] Diagnostic Findings EKG performed today 11/18/2022 and interpret independently: Sinus rhythm at 70 bpm with occasional PVCs. Lateral T wave changes noted in the lateral precordial leads.
[2022-11-18] MEDS: predniSONE 20 MG TAB PO SCH (15:18)
[2022-11-18] MEDS: DOCUSATE SODIUM 100 MG CAP PO SCH (20:37)
[2022-11-18] MEDS: LOVASTATIN 20 MG TAB PO SCH (20:47)
[2022-11-18] MEDS ORDERED: ENOXAPARIN INJ 40 MG/0.4 ML SYR SQ SCH (21:00)
[2022-11-19] MEDS: LEVOTHYROXINE SODIUM 88 MCG TABLET PO SCH (06:29)
[2022-11-19] MEDS: ISOSORBIDE MONO EXTENDED REL 30 MG TABCR PO SCH (08:00)
[2022-11-19] MEDS: ASPIRIN 81 MG ECTAB PO SCH (08:00)
[2022-11-19] MEDS: predniSONE 20 MG TAB PO SCH (08:00)
[2022-11-19] MEDS: MAGNESIUM OXIDE 400 MG TAB PO SCH (08:00)
[2022-11-19] MEDS: CLOPIDOGREL BISULFATE 75 MG TAB PO SCH (08:00)
[2022-11-19] MEDS: LOSARTAN POTASSIUM 25 MG TAB PO SCH (08:00)
[2022-11-19] MEDS: INSULIN ASPART PER UNIT CHARGE SC SCH ×2 (08:01→12:00)
[2022-11-19] MEDS: METOPROLOL TARTRATE 25 MG TAB PO SCH (08:01)
--- NOTE | 2022-11-19 13:56 | Discharge Summary ---
Date of Service November 19, 2022 Admission HPI Per Admitting Provider 72-year-old female with PMH dyslipidemia, hypothyroidism, DM type II, RAMIREZ on CPAP, HTN, small apical aneurysm, history of TIA, anxiety, and other problems listed below who presents the ED for evaluation of chest pain. History obtained from the patient and review of outpatient PCP and cardiology records. Patient seen by PCP on 11/10 and started on a course of azithromycin and prednisone for bronchitis. Patient completed both courses yesterday. Patient states that whenever she woke up this morning, she had a left-sided chest pain that was radiating into her left shoulder. Patient describes the pain as a pressure sensation. No specific causative or relieving factors. Patient reports several episodes throughout the day today. She states that she has had an ongoing nonproductive harsh cough. Reports some mild shortness of breath. Denies lightheadedness, dizziness, diaphoresis, syncopal events. No abdominal pain or nausea. Denies fevers and chills. No urinary symptoms. Patient was evaluated at [facility] today. It was felt that patient likely had costochondritis since pain was reproducible. Patient was referred for labs including troponin that resulted at 1700. Patient was advised to come to the ED for further evaluation. In the ED, patient is hemodynamically stable. CTA chest negative for acute findings. Repeat troponin 2287. EKG without acute ST changes. Patient was given IV Tylenol. She denies current chest pain. Admission Exam Per Admitting Provider Constitutional: WD/WN, vitals as above Eyes: PERRL, conjunctivae normal, anicteric sclerae ENMT: external ear and nose normal, oropharynx normal Respiratory: normal respiratory effort, lungs clear to auscultation Cardiovascular: Rate/Rhythm: regular rate and regular rhythm Vessels: normal peripheral pulses Extremities: + edema (Trace ankle edema noted) Gastrointestinal (Abdomen): normal bowel sounds, soft, nontender, no hepatosplenomegaly Musculoskeletal: no cyanosis or clubbing, extremities motor strength 5/5 Skin: no rashes, warm and dry Neurologic: PERRL, EOMI, accommodation nl, no face palsy, no dysarthria Psychiatric: A+Ox3, euthymic affect Principal Diagnosis NSTEMI, CP, Parainflueza 3 bronchitis, Costochondritis Discharge Exam General: Lying comfortably in bed, not in distress, on room air HEENT: EOMI, DOROTHY, MMM Chest: Left costochondral tenderness on palpation, clear breath sounds bilaterally, no wheezes or crackles CVS: Regular rate and rhythm, normal heart sounds, no murmur Abdomen: Soft, non tender, not distended, normal bowel sounds Neuro: Awake, alert, oriented, conversing well, non focal Extremities: No cyanosis, clubbing or edema Discharge Data Allergies Allergy/AdvReac Type Severity Reaction Status Date / Time atorvastatin AdvReac Intermediate LEG CRAMPS Verified 11/16/22 19:33 levofloxacin AdvReac Intermediate "GOOFY Verified 11/16/22 19:33 FEELING", DRY MOUTH Consultations 11/16/22 19:02 ED Decision to Admit Stat 11/16/22 21:10 Consult Cardiology Routine Procedures Performed Operation Date: 11/17/22 12:00 Actual Procedures s Cineradiography w/Routine Exam - Gaston Perkins MD, PhD p Cath, Coronaries ONLY (no LV) - Gaston Perkins MD, PhD Ordered Studies 11/16/22 19:19 CT angio chest dissec wo/w con Stat 11/17/22 12:26 CL Cath Imgs for PACS use only Routine Laboratory Results WBC 7.18 K/ul (4.8-10.8) 11/18/22 07:05 RBC 5.02 M/uL (4.20-5.40) 11/18/22 07:05 Hgb 14.2 g/dl (12.0-16.0) 11/18/22 07:05 Hct 43.5 % (37.0-47.0) 11/18/22 07:05 MCV 86.7 fL (80.0-100.0) 11/18/22 07:05 MCH 28.3 pg (25.0-34.0) 11/18/22 07:05 MCHC 32.6 g/dL (32.0-36.0) 11/18/22 07:05 RDW Std Deviation 44.0 fL (36.4-46.3) 11/18/22 07:05 RDW Coeff of Ti 14.0 % (11.5-14.5) 11/18/22 07:05 Plt Count 242 K/uL (130-400) 11/18/22 07:05 MPV 9.1 fL (9.4-12.4) L 11/18/22 07:05 PT 10.5 Seconds (9.0-12.0) 11/16/22 18:51 INR 1.0 (0.9-1.1) 11/16/22 18:51 APTT 65.2 Seconds (21.0-31.0) H* 11/17/22 03:22 PTT Ratio 2.3 11/17/22 03:22 Sodium 137 mmol/L (136-145) 11/18/22 07:05 Potassium 4.1 mmol/L (3.5-5.1) 11/18/22 08:00 Chloride 102 mmol/L (98-107) 11/18/22 07:05 Carbon Dioxide 31 mmol/L (21-32) 11/18/22 07:05 Anion Gap 4 (3-11) 11/18/22 07:05 BUN 13 mg/dl (6-23) 11/18/22 07:05 Creatinine 0.59 mg/dl (0.6-1.2) L 11/18/22 07:05 Est Cr Clr Drug Dosing 86.3 ml/min 11/18/22 07:05 Est GFR ( Amer) 106.1 ml/min 11/18/22 07:05 Est GFR (Non-Af Amer) 91.6 ml/min 11/18/22 07:05 BUN/Creatinine Ratio 22.0 (10-20) H 11/18/22 07:05 Glucose 101 mg/dl (70-99(Fasting)) H 11/18/22 07:05 POC Glucose 112 mg/dl (70-99) H 11/19/22 11:08 Estimat Average Glucose 117 mg/dl 11/17/22 03:22 Hemoglobin A1c 5.7 % (4.5-5.6) H 11/17/22 03:22 Calcium 9.3 mg/dl (8.6-10.3) 11/18/22 07:05 Phosphorus 3.2 mg/dl (2.5-4.9) 11/18/22 07:05 Magnesium 2.3 mg/dl (1.7-2.4) 11/18/22 07:05 Total Bilirubin 0.6 mg/dl (0.2-1.0) 11/18/22 07:05 AST 26 U/L (13-39) 11/18/22 08:00 ALT 15 U/L (7-52) 11/18/22 07:05 Alkaline Phosphatase 42 U/L (34-104) 11/18/22 07:05 Troponin I High Sens 949.7 pg/ml (0-14) H* 11/19/22 05:36 Total Protein 6.9 gm/dl (6.0-8.3) 11/18/22 07:05 Albumin 4.1 gm/dl (3.4-5.0) 11/18/22 07:05 Globulin 2.8 gm/dl (2.5-4.0) 11/18/22 07:05 Albumin/Globulin Ratio 1.5 (0.9-2) 11/18/22 07:05 Triglycerides 163 mg/dl (0-150) H 11/17/22 03:22 Cholesterol 147 mg/dl (0-200) 11/17/22 03:22 LDL Cholesterol, Calc 74 mg/dl 11/17/22 03:22 VLDL Cholesterol, Calc 33 mg/dl (0-30) H 11/17/22 03:22 HDL Cholesterol 40 mg/dl 11/17/22 03:22 Cholesterol/HDL Ratio 3.7 (0-5) 11/17/22 03:22 Adenovirus (PCR) Not Detected (NotDetected) 11/16/22 20:30 B. pertussis DNA (PCR) Not Detected (NotDetected) 11/16/22 20:30 B.parapertussis DNA PCR Not Detected (NotDetected) 11/16/22 20:30 C. pneumoniae DNA (PCR) Not Detected (NotDetected) 11/16/22 20:30 Coronavirus OC43 (PCR) Not Detected (NotDetected) 11/16/22 20:30 Coronavirus HKU1 (PCR) Not Detected (NotDetected) 11/16/22 20:30 Coronavirus 229E (PCR) Not Detected (NotDetected) 11/16/22 20:30 SARS-CoV-2 (PCR) Not Detected (NotDetected) 11/16/22 20:30 Coronavirus NL63 (PCR) Not Detected (NotDetected) 11/16/22 20:30 Hepatitis C Ab (EIA) NON-REACTIVE (NON-REACTIVE) 11/17/22 03:22 Hep C Ab Signal/Cutoff 0.11 (<1.00) 11/17/22 03:22 Human Metapneumovir PCR Not Detected (NotDetected) 11/16/22 20:30 Influenza Type A (PCR) Not Detected (NotDetected) 11/16/22 20:30 Influenza Type B (PCR) Not Detected (NotDetected) 11/16/22 20:30 M. pneumoniae (PCR) Not Detected (NotDetected) 11/16/22 20:30 Parainfluenza 1 (PCR) Not Detected (NotDetected) 11/16/22 20:30 Parainfluenza 2 (PCR) Not Detected (NotDetected) 11/16/22 20:30 Parainfluenza 3 (PCR) Not Detected (NotDetected) 11/16/22 20:30 Parainfluenza 4 (PCR) DETECTED (NotDetected) A* 11/16/22 20:30 RSV (PCR) Not Detected (NotDetected) 11/16/22 20:30 Entero/Rhino (PCR) Not Detected (NotDetected) 11/16/22 20:30 SARS-CoV-2, RNA, NAAT NEGATIVE (NEGATIVE) 11/16/22 18:51 Impressions Chest CTA 11/16/22 19:19 Exam(s): CTA CHEST W/WO Contrast IV Amt: 111ml EXAM: CT Angiography Chest With Intravenous Contrast CLINICAL HISTORY: Reason for exam: chest pain. TECHNIQUE: Axial computed tomographic angiography images of the chest with intravenous contrast. CTDI is 64.63 mGy and DLP is 1605.4 mGy-cm. Automated exposure control was utilized for the study. A dose lowering technique was utilized adhering to the principles of ALARA. MIP reconstructed images were created and reviewed. CONTRAST: Patient received 111ml of IV contrast COMPARISON: No relevant prior studies available. FINDINGS: Pulmonary arteries: Unremarkable. No pulmonary embolism. Aorta: Atherosclerotic changes of the aorta. No thoracic aortic aneurysm. Lungs: Unremarkable. No mass. No consolidation. Pleural space: Unremarkable. No significant effusion. No pneumothorax. Heart: Mild cardiomegaly. No significant pericardial effusion. No evidence of RV dysfunction. Bones/joints: Degenerative changes of the spine. No acute fracture. No dislocation. Soft tissues: Unremarkable. Lymph nodes: Unremarkable. No enlarged lymph nodes. IMPRESSION: No acute findings in the visualized arteries of the chest. Electronically signed by: Crow Carlos MD 11/16/22 20:22 PM Hospital Course (1) NSTEMI (non-ST elevated myocardial infarction): (2) Chest pain: Patient presented by referral of [facility] after she was evaluated there for ongoing bronchitis symptoms and left-sided chest pain. Remote history of cardiac cath in 1996 --reportedly normal coronary arteries, full report not available. Patient was referred for labs that showed troponin 1700->2287->949 CTA chest negative for dissection and pulmonary embolism. Found to have Parainfluenza 4 and also has left costochondral tenderness Echo with stable findings Seen by cardiology and underwent cardiac cath 11/17 which showed angiographically normal coronary arteries Suspected her CP and troponin elevation is from NSTEMI in setting of viral illness and costochondritis versus coronary vasospasm vs myocarditis Per cardio, discharge recommendations include - Aspirin for a month and then discontinue aspirin - Continue chronic Plavix -Start Imdur 30 mg daily for possible coronary vasospasm -Continue beta-jung and statin -Continue prednisone for bronchitis -Prescribed Protonix for GI prophylaxis given dual antiplatelet and prednisone Patient's symptoms are significantly improved and she is anxious to go home. She has been ambulating independently in the room and in the crowder. She is cleared by cardiology for discharge home. (3) Bronchitis: Patient completed course of azithromycin and prednisone the day before presentation No evidence of pneumonia on CT chest COVID-19 testing negative Resp PCR showed parainfluenza 4 Continue supportive therapies Started on another course of prednisone per cardio recommendations. Follow-up with PCP (4) Aneurysm: History of small apical aneurysm Stable on echo 06/2020 TTE noted mod conc LVH, apical aneurysm, EF 55% GI DD (5) DM type 2 (diabetes mellitus, type 2): Hgb A1c 5.7 06/2022. Continue metformin (6) History of TIA (transient ischemic attack): Continue Plavix, statin (7) HTN (hypertension): Continue home meds (8) RAMIREZ (obstructive sleep apnea): CPAP as per home setting Total Time Total Time Spent Total Time Spent (In Minutes): 40 Discharge Plan Discharge Items Patient Disposition: Home - Self-Care Reason For Visit: CHEST PAIN, ELEVATED TROP Discharge Diagnosis: NSTEMI, CP, Parainfluenza-4 bronchitis, Costochondritis Activity: Resume your previous activity Non-emergency contact: Primary Care Provider and [employer] Call non-emergency contact if: you have any medication questions, your symptoms worsen and you have a fever Follow-up/Referrals: Ismael Aceves MD [Primary Care Provider] - (Date & Time 11/25/2022 11:00 AM Provider Ismael Aceves MD [facility] ) Diet: Heart Healthy Addtl Attending Provider Instructions: Continue prednisone for 5 days from tomorrow. Take with food. Continue aspirin for 30 days and stop per cardiology Continue imdur and plavix Take protonix half hour before breakfast for a month while you are on aspirin and plavix for GI protection. See your family doctor in a week. If you have fever or nasty sputum, call your family doctor immediately to see if you would need antibiotics. If symptoms not resolved completely, call your family doctor to see if your prednisone course needs to be extended. You can take as needed mucinex or claritin. Follow up with cardiology Pending Studies at Discharge: No Stand-Alone Forms: My [facility] Seat 14A, Smoking Cessation Medications and DC Order Prescriptions: New isosorbide mononitrate 30 mg Tablet Extended Release 24 Hr 30 mg PO QAM Qty: 30 0RF aspirin 81 mg Tablet,Delayed Release (Dr/Ec) 81 mg PO DAILY Qty: 30 0RF prednisone 20 mg Tablet 20 mg PO DAILY Qty: 5 0RF pantoprazole [Protonix] 40 mg tablet,delayed release (DR/EC) 40 mg PO DAILY 28 Days Qty: 28 0RF Continued clopidogrel [Plavix] 75 mg Tablet 75 mg PO QAM docusate sodium [Colace] 100 mg Capsule 100 mg PO QPM vitamin B complex Tablet 1 tab PO QAM loratadine 10 mg Tablet 10 mg PO QAM PRN (Reason: Allergy Symptoms) calcium carbonate-vitamin D3 [Calcium 600 + D(3)] 600 mg(1,500mg) -400 unit Tablet 1 tab PO QPM Probiotic 20 billion cell Capsule 20,000 mmu cells PO QAM Rx Instructions: PER PT "NOT EVERY DAY". lorazepam 0.5 mg Tablet 0.5 mg PO TID PRN (Reason: Anxiety) losartan 25 mg Tablet 25 mg PO QAM fluticasone propionate 50 mcg/actuation [place],Suspension 2 spray INTRANASAL QAM hydrochlorothiazide 25 mg tablet 12.5 mg PO Q OTHER DAY potassium chloride 10 mEq tablet extended release 10 meq PO Q OTHER DAY multivitamin Tablet 1 tab PO QAM lovastatin 10 mg tablet 10 mg PO HS tramadol 50 mg tablet 50 mg PO Q8H PRN (Reason: Pain) levothyroxine [Levoxyl] 88 mcg tablet 88 mcg PO DAILY metoprolol succinate 25 mg tablet extended release 24 hr 12.5 mg PO DAILY metoprolol succinate 25 mg tablet extended release 24 hr 25 mg PO HS ondansetron 4 mg tablet,disintegrating 4 mg PO Q8H PRN (Reason: Nausea) metformin 500 mg tablet extended release 24 hr 500 mg PO BID cinnamon bark [Cinnamon] 500 mg Capsule 500 mg PO DAILY magnesium oxide 400 mg magnesium Tablet 400 mg PO DAILY Discharge Orders: Discharge Order (Routine); Ordered 11/19/22 Ordered By: Benjamin Anthony Admission Data Admit Date/Time: 11/16/22 19:21 Attending Provider: Benjamin Anthony Admit Provider: Robby Montes Primary Care Provider: Ismael Aceves Other Providers: Gus Lynn ; Robby Montes ; Gaston Barnes
--- NOTE | 2022-11-19 14:03 | Cardiology Progress Note ---
Date of Service November 19, 2022 Assessment & Plan (1) NSTEMI (non-ST elevated myocardial infarction): Plan: - (2) Bronchitis: (3) Parainfluenza infection: Plan: - Patient with non-STEMI in the setting of bronchitis episode, parainfluenza virus. Echocardiogram revealing chronic left apical aneurysm with normal wall motion otherwise, preserved ejection fraction. Cardiac catheterization revealed angiographically normal coronary arteries on 11/17/2022. -High-sensitivity troponin I has trended down from peak of 4735 on 11/18/2019 3- 949.7 PG per mL on 11/19/2022. -Patient has residual chest wall pain, without angina at present. -Patient started on isosorbide mononitrate for possible coronary vasospasm. Notes mild subjective headache at the time of initial assessment this morning which may be related to the Imdur if she does not tolerate this, will consider transitioning her to amlodipine. -Cardiac catheterization does not suggest coronary artery embolic phenomenon. Other alternative diagnoses include myocarditis. Patient hemodynamically stable. -Elevated troponin may have been due to myocardial demand in setting of significant viral illness even with normal coronaries. -Would consider placing patient on another course of corticosteroids for bronchitis. Antibiotics likely not indicated. Continue metoprolol, chronic lovastatin therapy, losartan, aspirin added to her chronic clopidogrel given non-STEMI. Per outpatient medication list patient had been on chronic clopidogrel due to past TIA. Given findings of non-STEMI without need for PCI, recommend 30 days of aspirin, enteric-coated, 81 mg daily, then discontinue, continue chronic clopidogrel without interruption. Resume prior to hospital treatment with metoprolol, lovastatin, losartan. Discharged on isosorbide mononitrate 30 mg daily for possible coronary vasospasm. Recommend completing a course of oral prednisone for bronchitis. Patient stable from cardiac perspective for discharge. Case reviewed with Dr. Anthony. DVT prophylaxis: Subcutaneous Lovenox. Admission and Anticipated Discharge Date Admission Date: November 16, 2022 Subjective Patient seen in cardiology follow-up. Cough somewhat improved today. Telemetry reveals sinus rhythm in the 70s. Physical Exam Constitutional: WD/WN, vitals as above Respiratory: normal respiratory effort, lungs clear to auscultation Cardiovascular: RRR, no murmur, no edema Gastrointestinal (Abdomen): normal bowel sounds, soft, nontender, no hepatosplenomegaly Neurologic: PERRL, EOMI, accommodation nl, no face palsy, no dysarthria Results & Data Vital Signs (Past 12 Hours) Vital Signs Temp Pulse Pulse Resp BP Pulse Ox O2 Del Method 11/19/22 13:56 37 C 83 20 111/73 94 11/19/22 11:45 37 C 83 20 111/73 94 Room Air 11/19/22 08:09 37 C 84 20 117/72 96 Room Air 11/19/22 07:02 82 11/19/22 03:27 36.5 C 69 20 128/84 96 Room Air Laboratory Results Cardiac Enzymes 11/19/22 Range/Units 05:36 Troponin I High Sens 949.7 H* (0-14) pg/ml Intake and Output 11/18/22 11/19/22 11/19/22 22:59 06:59 14:59 Intake Total 400 / 1035 275 / 1035 740 / 740 Balance 400 / 1035 275 / 1035 740 / 740 Intake: Oral 400 / 1035 275 / 1035 740 / 740 Other: # Unmeasured Voids 1 2 4 Weight 82.9 kg 82.9 kg Weight Measurement Method Built in [facility] Patient Weight 11/20/22 06:59 Weight 82.9 kg
== END 2022-11-19 15:30 | disposition home or self-care (01) | DRG 281 ==
LOC: ED 18:31 → 2S 19:21 → INTOOBSV 19:21 → SUATTDRO 19:21 → 2S 20:51
PROC: CLB.CCO (2022-11-17 12:00)